=== PATIENT | male | born 1995 | race Caucasian/White ===

== ENCOUNTER 2022-07-14 08:52 | Emergency (ER) | payer MEDICAID, OTHER, SELFPAY ==
--- NOTE | ~2022-07-14 | XR_ITS ---
EXAMINATION: XR CHEST CLINICAL INFORMATION: COVID positive, fever COMPARISON: None TECHNIQUE: 2 views of the chest were obtained. FINDINGS: No significant abnormality is noted involving the heart, lungs, mediastinum, bony thorax or soft tissues. XR/XR chest 2V IMPRESSION: No acute pulmonary disease.
[2022-07-14 09:52] VITALS: BP 127/73; PULSE 111; RESP 24; TEMP 38.1; O2SAT 97; BMI 27.7
[2022-07-14] MEDS: Acetaminophen 325 MG TABLET 975 MG PO (09:59)
[2022-07-14 12:19] VITALS: BP 119/85; PULSE 105; RESP 20; TEMP 37.4; O2SAT 98
[2022-07-14 12:33] LABS: Strep A Nucleic Acid Positive (Negative)
[2022-07-14 12:34] LABS: COVID-19 Test Positive (Negative)
--- NOTE | 2022-07-14 12:38 | ED_ITS ---
HPI - URI/Sore Throat General Chief Complaint: Upper Respiratory Symptoms Stated Complaint: covid + diff breathing Time Seen by Provider: 07/14/22 12:18 Source: patient Mode of arrival: ambulatory Limitations: language barrier (Belarusian-speaking) History of Present Illness HPI Narrative: 26-year-old male c PMHx of kidney stones presenting to the ER with complaints of fevers, chills, fatigue, malaise, nasal congestion/rhinorrhea, sore throat, productive cough with yellow/green colored sputum/shortness of breath since Thursday worse today. Reports that he is vaccinated to COVID. He took the at home COVID test was positive today. He reports that he had 2 episodes of vomiting. Otherwise he has been eating and drinking normally after that. He denies any dizziness, neck pain/stiffness, trouble swallowing, trouble breathing, chest pain, dyspnea on exertion, orthopnea, palpitations, paresthesias, abdominal pain, diarrhea or constipation, black or bloody stools, lower extremity edema calf tenderness, recent travel or sick contacts that he is aware of or any other symptoms complaints or concerns at this time. MD elicited complaint: fever, cough, sore throat, rhinorrhea and nasal congestion Onset (ago): day(s) (3) Consistency: constant and progressively worsening Severity: moderate Description of mucous: clear, watery, yellow and green Able to tolerate fluids by mouth: Yes Exacerbating factors: swallowing Relieving factors: nothing Associated symptoms: fever, chills, myalgias, headache, rhinorrhea, nasal congestion, sore throat, cough, shortness of breath, nausea and vomiting Treatments prior to arrival: none Related Data Previous Rx's Medication Instructions Recorded acetaminophen 500 mg tablet 1,000 mg PO QID PRN fever or pain 07/14/22 (Tylenol Extra Strength) #14 tabs amoxicillin 875 mg-potassium 1 tab PO BID pharygitis 10 days 07/14/22 clavulanate 125 mg tablet #20 tabs ibuprofen 800 mg tablet 800 mg PO Q8H PRN pain #14 tabs 07/14/22 ondansetron 4 mg disintegrating 4 mg PO Q8H #14 tabs 07/14/22 tablet Allergies Allergy/AdvReac Type Severity Reaction Status Date / Time No Known Allergies Allergy Unverified 06/07/20 19:36 [No Known Allergies*] Review of Systems Review of Systems: Constitutional : No Weight loss, + Fever, + Chills, No Night Sweats, + Fatigue, + Malaise ENT/Mouth : + Sore throat, + nasal congestion/rhinorrhea, No Hearing loss, No Ear Pain, No Sinus Pain, No Hoarseness, No Swallowing Difficulty Eyes: No Eye Pain, No Swelling, No Redness, No Foreign Body, No Discharge, No Vision Changes Cardiovascular : No Chest Pain, + SOB, No Dyspnea on Exertion, No Orthopnea, No Edema, No Palpitations Respiratory : + Cough, + Sputum, No Wheezing, No Smoke Exposure, No Dyspnea Gastrointestinal : + Nausea, + Vomiting, No Diarrhea, No Constipation, No abdominal Pain, No Hematochezia, No Melena Genitourinary : no irregular bleeding, No Dysuria, No Urinary Frequency, No Hematuria, No Urinary Incontinence, No Urgency, No Flank Pain, No Urinary Flow Changes, No Hesitancy Musculoskeletal : No joint pain, + Myalgias, No Joint Swelling Skin : No Skin Lesions, No rash Neuro : No Weakness, No Numbness, No Paresthesias, No Loss of Consciousness, No Dizziness, No Headache Psych : No Anxiety/Panic, No Depression, No SI/HI/AH/VH, No Social Issues, Heme/Lymph: No Bruising, No Bleeding,No Lymphadenopathy Endocrine : No Polyuria, No Polydipsia, No Temperature Intolerance Yes all other systems are reviewed and are negative [facility] Past Medical History Attestation statement: The following information was validated with the patient. Source: old records reviewed, obtained from family and nursing notes reviewed Social History Social History Advance Directives: No Advance Directives Information Provided: No Physical Exam Vital Signs: Vital Signs: Last Vital Signs Temp 99.4 F 07/14/22 12:19 Pulse 105 H 07/14/22 12:19 Resp 20 07/14/22 12:19 BP 119/85 07/14/22 12:19 Pulse Ox 98 07/14/22 12:19 O2 Del Method 07/14/22 12:19 BMI result Body Mass Index 27.7 vital signs have been reviewed as normal and appeared to be correct. Blood pressure normal. Heart rate 111. Respiration rate 24. Temperature 100.5. Oxygen saturation normal. Appearance: Alert. Oriented X3. No acute distress. Head: Normal external exam. Normocephalic. Atraumatic. Eyes: PERRLA. EOMI. Conjunctiva and sclera normal. Eyelids normal. ENT: EAC normal. TM's Normal. Posterior pharynx mildly erythematous although no exudate is noted. Uvula midline. Moist mucous membranes. No lesions/ulcerations or masses noted on the tongue. Normal voice. No trismus noted. No drooling noted. No muffled voice noted. Neck: Normal inspection. Neck supple. FROM. No adenopathy. Thyroid Normal. No meningeal signs. CVS: Normal heart rate and rhythm. Heart sound normal. Pulses normal throughout. No murmurs/rales/gallops. Respiratory: No respiratory distress. Painless inspiration. Breath sounds normal. No wheezes/rales/rhonchi noted. Chest nontender. No accessory muscle usage noted or decreased air movement noted. Abdomen: Soft and nontender. Nondistended. No guarding. No rigidity. Bowel sounds normal in all 4 quadrants. No distention noted. No organomegaly noted. No visible injury noted. No rebound tenderness. Negative Rovsing sign. Negative obturator's sign. Negative psoas sign. Negative Green sign. Back: No CVA tenderness. Full range of motion noted. Mild tenderness palpation to lower lumbar aspect. No signs of trauma. Patient neuro intact bilaterally and distally on all 4 extremities. Patient's reflexes intact bi laterally and distally on all 4 extremities. No rashes/lesion/induration/fluctuance or signs of infection noted. Skin: Skin warm and dry. Normal skin color. Normal skin turgor. No rashes/lesions/lacerations noted. Extremities: No lower extremity edema. No calf tenderness is noted. Extremities exhibit normal range of motion and nontender. Neuro: Oriented X 3. No motor deficit. No sensory deficit. Reflexes normal. Normal steady gait. No focal neuro deficits noted. CN's II-XII intact bilaterally? Vascular: + radial pulses/+ 2 distal pedal pulses/+2 dorsalis pedis b/l. Normal cap refill. No cyanosis noted to upper extremity nails and lower extremity toes nails. Course Course Course Narrative: Patient positive for COVID. Patient positive for bacterial pharyngitis. Patient is able to tolerate p.o. fluids. Chest x-ray negative for any acute processes per No additional labs imaging indicated. Will DC home with symptomatic treatment antibiotics and instructions to self isolate per CDC guidelines and to return if any new or worsening symptoms. Patient understands agrees with this plan. MDM - URI/Sore Throat Medical Records Attestation: I reviewed the patient's medical records. Lab Data Attestation: I reviewed the patient's lab results. Labs: Lab Results 07/14/22 07/14/22 Range/Units 12:21 12:21 COVID-19 (LEE) Positive A (Negative) COVID-19 Clin Com See Note S. pyogenes GrpA DEVON Positive A (Negative) Imaging Data Chest x-ray: Attestation: I personally reviewed and interpreted this imaging study as follows: Radiologist's impression: FINDINGS: No significant abnormality is noted involving the heart, lungs, mediastinum, bony thorax or soft tissues. XR/XR chest 2V IMPRESSION: No acute pulmonary disease. Discharge Plan Discharge Clinical Impression: COVID-19, Acute bacterial pharyngitis Patient Disposition: Home, Self-Care Instructions: Pharyngitis (ED), COVID-19 (Coronavirus Disease 2019) (ED) Prescriptions: New ibuprofen 800 mg tablet 800 mg PO Q8H PRN (Reason: pain) Qty: 14 0RF acetaminophen [Tylenol Extra Strength] 500 mg tablet 1,000 mg PO QID PRN (Reason: fever or pain) Qty: 14 0RF amoxicillin-pot clavulanate 875-125 mg tablet 1 tab PO BID 10 Days Qty: 20 0RF ondansetron 4 mg tablet,disintegrating 4 mg PO Q8H Qty: 14 0RF Referrals: Physician,None [Primary Care Provider] - (your pcp) Stand Alone Forms: Work/School Release Interventions: ED Discharge Assessment Last Done: 07/14/22 13:12 Discharge Date/Time: 07/14/22 13:13 Print Language: Belarusian
[2022-07-14] MEDS: Ondansetron ODT 4 MG TAB.RAPDIS TRANSLINGU (12:42)
[2022-07-14] MEDS: Ibuprofen 800 MG TABLET PO (12:43)
== END 2022-07-14 13:13 | disposition home or self-care (01) ==
PROVIDERS: Emergency Provider Emergency Medicine
DX: U07.1 COVID-19 (principal); J02.0 Streptococcal pharyngitis
CPT/HCPCS: 71046; 87635; 87651; 99283; 99284

== ENCOUNTER 2022-11-12 09:23 | Emergency (ER) | payer OTHER, SELFPAY ==
--- NOTE | ~2022-11-12 | CT_ITS ---
EXAMINATION: CT ABDOMEN AND PELVIS WITHOUT CONTRAST CLINICAL INFORMATION: Left-sided abdominal pain and hematuria COMPARISON: CT abdomen pelvis 09/17/2018 TECHNIQUE: Multidetector volumetric imaging was performed from the superior aspect of the liver through the pubic symphysis. Sagittal and coronal reformatted images were obtained on the technologist's workstation. This CT examination was performed using dose optimization techniques as appropriate, variously including the following: *Automated exposure control *Adjustment of mA and/or kV according to patient size (this includes techniques or standardized protocols for targeted exams where dose is matched to indication/reason for exam; i.e. extremities or head) *Use of iterative reconstruction technique DLP: 600 mGy-cm FINDINGS: LUNG BASES: The visualized lung bases are unremarkable. LIVER, GALLBLADDER, AND BILIARY TREE: The liver is enlarged at 18.8 cm in greatest length and demonstrates decreased attenuation consistent with hepatic steatosis. No focal hepatic lesion or biliary ductal dilatation is present. The gallbladder is unremarkable with no evidence of radiopaque gallstones, gallbladder wall thickening, or obvious pericholecystic inflammatory changes. PANCREAS: Unremarkable. SPLEEN: Unremarkable. ADRENAL GLANDS: Unremarkable. KIDNEYS AND URETERS: There is a new stones seen in the left distal ureter measuring 5 mm which was not present at the time of the prior study. The stone is causing no significant obstruction, as hydronephrosis is not detected. Bilateral nonobstructing renal calculi are again noted with 7 stones in the right kidney the largest measuring under 3.5 mm and 5 stones in the left kidney with the largest measuring 3 mm. A benign 1.2 cm Bosniak class I simple left renal cyst is present which needs no additional imaging or follow-up. BLADDER: Unremarkable. GASTROINTESTINAL TRACT: The small and large bowel are unremarkable. The appendix is unremarkable. ABDOMINAL WALL: No significant hernia is appreciated. LYMPH NODES: No retroperitoneal lymphadenopathy VASCULAR: Unremarkable. PELVIC VISCERA: The prostate and seminal vesicles are unremarkable. OSSEOUS STRUCTURES: Unremarkable. CT/CT abdomen pelvis wo IV con IMPRESSION: 1. There is a new 5 mm stone in the left distal ureter causing no significant obstruction. 2. Bilateral nonobstructing renal calculi are present. 3. Enlarged fatty liver. Fleischner guidelines were followed.
[2022-11-12 09:33] VITALS: BP 136/82; PULSE 93; RESP 18; TEMP 35.8; O2SAT 97; BMI 28.0
--- NOTE | 2022-11-12 09:47 | PC.NURSE ---
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
--- NOTE | 2022-11-12 10:08 | ED_ITS ---
HPI - Male Genitourinary General Chief complaint: Urogenital-Male Stated complaint: renee/blood when urinating Time Seen by Provider: 11/12/22 09:49 Source: patient Mode of arrival: ambulatory Limitations: no limitations History of Present Illness HPI Narrative: 27-year-old male came in for evaluation of left-sided abdominal pain started 2 days ago. Started 2 days ago with sharp stabbing pain to the left side of the abdomen radiating toward to the left groin, pain is now associated with blood in the urine but no nausea vomiting. No fever or chills. Normal bowel movement. Related Data Previous Rx's Medication Instructions Recorded acetaminophen 500 mg tablet 1,000 mg PO QID PRN fever or pain 07/14/22 (Tylenol Extra Strength) #14 tabs amoxicillin 875 mg-potassium 1 tab PO BID pharygitis 10 days 07/14/22 clavulanate 125 mg tablet #20 tabs ibuprofen 800 mg tablet 800 mg PO Q8H PRN pain #14 tabs 07/14/22 ondansetron 4 mg disintegrating 4 mg PO Q8H #14 tabs 07/14/22 tablet oxycodone 5 mg tablet 5 mg PO BID PRN pain #10 tabs 11/12/22 Allergies Allergy/AdvReac Type Severity Reaction Status Date / Time No Known Allergies Allergy Verified 11/12/22 09:40 [No Known Allergies*] Review of Systems Review of Systems: All other systems are reviewed and are negative Constitutional: Reports as per HPI and Reports no additional constitutional complaints Eyes: Reports as per HPI and Reports no additional eye complaints Reports system reviewed and no additional complaints, except as documented Cardiovascular: Reports as per HPI and Reports no additional cardiovascular complaints Respiratory: Reports as per HPI and Reports no additional respiratory complaints Gastrointestinal: Reports as per HPI and Reports no additional gastrointestinal complaints Genitourinary: Reports no additional female genitourinary complaints Musculoskeletal: Reports no additional musculoskeletal complaints Skin/Breast: Reports system reviewed and no additional complaints, except as docu Psychiatric: Reports no additional psychiatric complaints Endocrine: Reports no additional endocrine complaints Hematologic/Lymphatic: Reports no additional hematologic/lymphatic complaints Allergic/Immunologic: Reports no additional allergic/immunologic complaints Reports system reviewed and no additional complaints, except as documented and Reports Abnormal speech present [facility] Social History Social History Alcohol intake: unknown Smoked in Last 30 Days: No Advance Directives: No Physical Exam Vital Signs: Vital Signs: Last Vital Signs Temp 96.5 F L 11/12/22 09:33 Pulse 81 11/12/22 13:53 Resp 18 11/12/22 13:53 BP 128/80 11/12/22 13:53 Pulse Ox 97 11/12/22 13:53 O2 Del Method 11/12/22 13:53 BMI result Body Mass Index 28.0 Vital signs have been reviewed as appeared to be correct. Blood pressure normal. Heart rate normal. Respiration rate normal. Temperature normal. Oxygen saturation normal. Appearance: Alert. Oriented X3. No acute distress. Head: Normal external exam. Normocephalic. Atraumatic. No Shepard signs noted. No raccoon eyes noted Eyes: PERRLA. EOMI. Conjunctiva and sclera normal. Eyelids normal. ENT: TM's Normal. Pharynx normal. Uvula midline. Moist mucous membranes. No trismus noted. No drooling noted. No muffled voice noted. Neck: Normal inspection. Neck supple. FROM. No adenopathy. Thyroid Normal. No m eningeal signs. No neck mass noted. CVS: Normal heart rate and rhythm. Heart sound normal. No murmurs noted. Pulses normal throughout. Respiratory: No respiratory distress. Painless inspiration. Breath sounds normal. No wheezes/rales/rhonchi noted. Chest nontender. No accessory muscle usage noted or decreased air movement noted. Abdomen: Soft, left lower quadrant tenderness, no rebound tenderness, no guarding.. Bowel sounds normal in all 4 quadrants. No distention noted. No organomegaly noted. No visible injury noted. : Uncircumcised, intact bilateral cremasteric reflex, no scrotal swelling or tenderness. Back: Left CVA tenderness. Full range of motion noted. Skin: Skin warm and dry. Normal skin color. Normal skin turgor. No rashes/lesions/lacerations noted. Extremities: No lower extremity edema. Extremities exhibit normal range of motion. Extremities nontender. Neuro: Oriented X 3. Cranial nerve exam: II-XII are grossly intact No motor deficit. No sensory deficit. Reflexes normal. Course Course Course Narrative: 27-year-old male came in for hematuria and left-sided abdominal pain, physical exam and CT of the abdomen pelvis is consistent with 5 mm stone in distal ureter. Encouraged the patient to drink plenty of fluid and will discharge with oxycodone and follow up with urologist. Medications Administered Discontinued Medications Generic Name Dose Route Start Last Admin Trade Name Freq PRN Reason Stop Dose Admin Sodium Chloride 1,000 mls @ 999 mls/hr 11/12/22 10:05 11/12/22 11:20 Ns IV 11/12/22 11:05 Infused .Q1H1M ONE Infusion Ketorolac Tromethamine 30 mg 11/12/22 10:05 11/12/22 10:17 Ketorolac Tromethamine 30 Mg/Ml Vial IVPUSH 11/12/22 10:06 30 mg ONCE ONE Administration Morphine Sulfate 2 mg 11/12/22 10:05 11/12/22 10:17 Morphine Sulfate 2 Mg/Ml Cartridge IVPUSH 11/12/22 10:06 2 mg ONCE ONE Administration Protocol Medical Decision Making Differential Diagnosis Differential Diagnoses: The differential diagnosis associated with the pre sentation includes (Renal colic, ureteric stone, kidney infection, UTI, anemia due to hematuria.) Lab Data MDM Lab Attestation statement: I reviewed the patient's lab results. 11/12/22 10:13 11/12/22 10:13 Labs: Lab Results 11/12/22 11/12/22 11/12/22 Range/Units 10:13 10:13 10:13 WBC 7.0 (4.8-10.8) X10*3/uL RBC 6.14 H (4.60-5.80) X10*6/uL Hgb 17.1 (14.0-18.0) g/dl Hct 51.0 (42.0-52.0) % MCV 83.1 (80.0-98.0) fL MCH 27.9 (27.0-33.0) pg MCHC 33.5 (31.0-36.0) g/dl RDW 13.0 (11.0-16.0) % Plt Count 255 (160-400) X10*3/uL MPV 10.5 (9.4-12.4) fL Immature Gran % (Auto) 0.3 (0.0-0.4) % Neut % (Auto) 46.4 (45-73) % Lymph % (Auto) 40.9 H (20-40) % [place] % (Auto) 6.2 (2-11) % Eos % (Auto) 5.6 H (0-4) % Baso % (Auto) 0.6 (0-2) % Lymph # (Auto) 2.9 (1.2-4.9) X10*3/uL [place] # (Auto) 0.4 (0.1-1.2) X10*3/uL Eos # (Auto) 0.4 (0.0-0.4) X10*3/uL Baso # (Auto) 0.0 (0.0-0.2) X10*3/uL Abs Immat Gran (auto) 0.02 (0.00-0.03) X10*3/uL Absolute Neuts (auto) 3.2 (2.0-8.3) x10*3/uL Absolute Nucleated RBC 0.000 (0.0-0.012) X10*3/uL Nucleated RBC % (auto) 0.0 (0.0-0.2) /100WBC Sodium 141 (135-145) mmol/L Potassium 4.3 (3.3-5.1) mmol/L Chloride 109 H (96-108) mmol/L Carbon Dioxide 26 (22-29) mmol/L Anion Gap 10 L (12-20) BUN 12 (9-16) mg/dL Creatinine 0.97 (0.5-1.4) mg/dL Estim Creat Clear Calc 119.6 Estimated GFR > 60 Random Glucose 90 (60-115) mg/dL Calcium 9.8 (8.4-10.2) mg/dL Total Bilirubin 0.6 (0.0-1.0) mg/dL Direct Bilirubin < 0.2 (0.0-0.5) mg/dL AST 21 (5-37) U/L ALT 34 (0-40) U/L Alkaline Phosphatase 59 (39-117) U/L Total Protein 7.2 (6.5-8.0) g/dL Albumin 4.3 (3.5-5.0) g/dL Lipase 18 (8-78) U/L Urine Color DK YELLOW Urine Appearance Hazy Urine pH 6.5 (5.0-9.0) Ur Specific [place] 1.020 (1.005-1.025) Urine Protein Trace (Neg-Trace) mg/dL Urine Glucose (UA) Negative (Negative) mg/dL Urine Ketones Negative (Negative) mg/dL Urine Blood Negative (Negative) Urine Nitrite See Note (Negative) Ur Leukocyte Esterase Negative (Negative) Urine RBC 0-2 (0-2) /HPF Urine WBC 0-5 (0-5) /HPF Ur Squamous Epith Cells 0-2 (0-2) /HPF Urine Bacteria None Seen (None Seen) Hyaline Casts 0-2 (0-2) /LPF Independent Interpretation I performed an independent interpretation of an: CT Scan (5 mm left ureteric stone) Radiology Impression Discussion of test interpretation with radiology: I have reviewed the radiologist's reading. (1. There is a new 5 mm stone in the left distal ureter causing no significant obstruction. 2. Bilateral nonobstructing renal calculi are present. 3. Enlarged fatty liver. ) Discharge Plan Discharge Clinical Impression: Renal colic Patient Disposition: Home, Self-Care Instructions: Renal Colic (ED) Prescriptions: New oxycodone 5 mg tablet 5 mg PO BID PRN (Reason: pain) Qty: 10 0RF Rx Instructions: Partial Fill upon patient request. No Action ibuprofen 800 mg tablet 800 mg PO Q8H PRN (Reason: pain) Qty: 14 0RF acetaminophen [Tylenol Extra Strength] 500 mg tablet 1,000 mg PO QID PRN (Reason: fever or pain) Qty: 14 0RF amoxicillin-pot clavulanate 875-125 mg tablet 1 tab PO BID 10 Days Qty: 20 0RF ondansetron 4 mg tablet,disintegrating 4 mg PO Q8H Qty: 14 0RF Referrals: Thomas Brantley MD [Physician] -
[2022-11-12] MEDS: Morphine Sulfate 2 MG/ML CARTRIDGE IVPUSH (10:17)
[2022-11-12] MEDS: 0.9 % Sodium Chloride 1,000 ML 999 ML IV (10:17)
[2022-11-12] MEDS: Ketorolac Tromethamine 30 MG/ML VIAL IVPUSH (10:17)
[2022-11-12 10:18] LABS: MANUAL DIFF FLAG NO
--- NOTE | 2022-11-12 10:20 | PC.NURSE ---
Portugese speaking gentleman with report of abdominal pain with blood with urination 8/. Neuros intact no respiratory distress noted. Patient ambulatory to bathroom with steady independent gait. IV access obtained labs collected and sent. Speeder Hand utilized tolerating IVF and pain meds will CTM
[2022-11-12 10:23] LABS: Appearance Urine Hazy; Color Urine DK YELLOW; Glucose Urine UA Negative (Negative); Leukocyte Esterase Urine Negative (Negative); PH 6.5 (5.0-9.0); UMIC TRIGGER UACC YES; Urine Blood Negative (Negative); Urine Ketones Negative (Negative); Urine Protein Trace mg/dL (Neg-Trace)
[2022-11-12 10:25] LABS: Basophils Percent Auto 0.6 % (0-2); Eosinophils Absolute Auto 0.4 X10*3/uL (0.0-0.4); Eosinophils Percent Auto 5.6 % (0-4); Hemoglobin 17.1 g/dl (14.0-18.0); Imm Gran Abs Auto 0.02 X10*3/uL (0.00-0.03); Imm Gran Pct Auto 0.3 % (0.0-0.4); Lymphocytes Absolute Auto 2.9 X10*3/uL (1.2-4.9); Lymphocytes Percent Auto 40.9 % (20-40); Mean Corpuscular HGB Conc 33.5 g/dl (31.0-36.0); Mean Corpuscular Hemoglobin 27.9 pg (27.0-33.0); Mean Corpuscular Volume 83.1 fL (80.0-98.0); Mean Platelet Volume 10.5 fL (9.4-12.4); Monocytes Absolute Auto 0.4 X10*3/uL (0.1-1.2); Monocytes Percent Auto 6.2 % (2-11); Neutrophils Absolute Auto 3.2 x10*3/uL (2.0-8.3); Neutrophils Percent Auto 46.4 % (45-73); Platelet Count 255 X10*3/uL (160-400); Red Blood Count 6.14 X10*6/uL (4.60-5.80)
[2022-11-12 10:44] LABS: Bacteria Urine None Seen (None Seen); Hyaline Casts Urine 0-2 /LPF (0-2); RBC Urine 0-2 /HPF (0-2); Squamous Epithelial Cell Urine 0-2 /HPF (0-2); WBC Urine 0-5 /HPF (0-5)
[2022-11-12 10:45] LABS: Alanine Aminotransferase 34 U/L (0-40); Albumin Level 4.3 g/dL (3.5-5.0); Alkaline Phosphatase 59 U/L (39-117); Anion Gap 10 (12-20); Aspartate Amino Transferase 21 U/L (5-37); Bilirubin Direct < 0.2 mg/dL (0.0-0.5); Bilirubin Total 0.6 mg/dL (0.0-1.0); Blood Urea Nitrogen 12 mg/dL (9-16); Calcium 9.8 mg/dL (8.4-10.2); Carbon Dioxide 26 mmol/L (22-29); Chloride 109 mmol/L (96-108); Creatinine Clr Calc Pharmacy 119.6; Estimated Glomerular Filt Rate > 60; Glucose Random 90 mg/dL (60-115); Lipase 18 U/L (8-78); Potassium 4.3 mmol/L (3.3-5.1); Sodium 141 mmol/L (135-145); Total Protein 7.2 g/dL (6.5-8.0)
--- NOTE | 2022-11-12 10:46 | PC.NURSE ---
Patient reports some improvement with pain continues to tolerate IVF will CTM
[2022-11-12 13:53] VITALS: BP 128/80; PULSE 81; RESP 18; O2SAT 97
== END 2022-11-12 14:36 | disposition home or self-care (01) ==
PROVIDERS: Emergency Provider Emergency Medicine
DX: R31.9 Hematuria, unspecified (principal); N23 Unspecified renal colic; Z79.899 Other long term (current) drug therapy
CPT/HCPCS: 36415; 74176; 80048; 80076; 81001; 83690; 85025; 96361; 96374; 96375; 99284; J1885; J2270

== ENCOUNTER 2022-11-23 07:59 | Inpatient (IN) | payer OTHER, SELFPAY ==
--- NOTE | ~2022-11-23 | US_ITS ---
EXAMINATION: US RETROPERITONEAL COMPLETE (RENAL) CLINICAL INFORMATION: Left ureteral stone versus bladder stone. COMPARISON: CT abdomen pelvis 11/23/2022 TECHNIQUE: Real-time imaging of the kidneys and bladder. FINDINGS: RIGHT KIDNEY: 11.2 x 5.1 x 4.7 cm (SAG x AP x TRV). The kidney is normal in size, contour, and echogenicity. Renal cortical thickness is normal. No calculi identified sonographically or focal parenchymal lesions. No hydronephrosis. LEFT KIDNEY: 12.4 x 6.1 x 4.6 cm (SAG x AP x TRV). The kidney is normal in size, contour, and echogenicity. Renal cortical thickness is normal. No focal parenchymal lesions or hydronephrosis. 2 mm nonobstructing lower pole renal stone. BLADDER: A 7 mm stone is noted in the region of the left ureterovesicular junction. Bilateral ureteral jets are demonstrated. Prevoid bladder volume is 206 mL. Postvoid bladder volume is 14 mL. Prostate is normal in volume measuring 5.5 mL. US/US retroperitoneal comp IMPRESSION: A 7 mm stone is noted in the region of the left ureterovesicular junction. Bilateral ureteral jets are demonstrated. No hydronephrosis. 2 mm nonobstructing left lower pole renal stone.. Multiple other previously seen stones are not identified sonographically.
--- NOTE | ~2022-11-23 | CT_ITS ---
EXAMINATION: CT ABDOMEN AND PELVIS WITHOUT CONTRAST CLINICAL INFORMATION: Left lower quadrant/flank pain COMPARISON: CT abdomen and pelvis without IV contrast 11/12/2022 TECHNIQUE: Multidetector volumetric imaging was performed from the superior aspect of the liver through the pubic symphysis. Sagittal and coronal reformatted images were obtained on the technologist's workstation. This CT examination was performed using dose optimization techniques as appropriate, variously including the following: *Automated exposure control *Adjustment of mA and/or kV according to patient size (this includes techniques or standardized protocols for targeted exams where dose is matched to indication/reason for exam; i.e. extremities or head) *Use of iterative reconstruction technique DLP: 551 mGy-cm FINDINGS: LUNG BASES: The visualized lung bases are unremarkable. LIVER, GALLBLADDER, AND BILIARY TREE: The liver is normal in size, shape, and attenuation. No focal hepatic lesion or biliary ductal dilatation is present. The gallbladder is unremarkable with no evidence of radiopaque gallstones, gallbladder wall thickening, or obvious pericholecystic inflammatory changes. PANCREAS: Unremarkable. SPLEEN: Unremarkable. ADRENAL GLANDS: Unremarkable. KIDNEYS AND URETERS: The kidneys are normal in size, shape, and attenuation. There are multiple 3 mm radiopaque calculi scattered in the upper mid and lower pole of both kidneys without caliectasis or hydronephrosis. BLADDER: There is a 5 mm radiopaque calculi. The left UVJ orifice. Previously it was in the left distal ureter and has migrated inferiorly. Mild dilated left distal ureter is noted. GASTROINTESTINAL TRACT: Colon and the small bowel loops are normal caliber. Appendix is normal caliber. No free air or free fluid seen. ABDOMINAL WALL: No significant hernia is appreciated. LYMPH NODES: No abnormal size pelvic or retroperitoneal lymph nodes seen. VASCULAR: Unremarkable. PELVIC VISCERA: Unremarkable. OSSEOUS STRUCTURES: No aggressive lytic or sclerotic process seen. CT/CT abdomen pelvis wo IV con IMPRESSION: 1. 5 mm radiopaque calculi at the left UVJ orifice. Previously it was in the left distal ureter and has migrated inferiorly. Mild dilated left ureter. 2. Bilateral nonobstructive radiopaque renal calculi. Fleischner guidelines were followed.
--- NOTE | ~2022-11-23 | FL_ITS ---
EXAMINATION: XR FLUOROSCOPY WITH IMAGES CLINICAL INFORMATION: Left ureteral stone. COMPARISON: None. TECHNIQUE: Fluoroscopy Supervised By: Dr. Barrett . Fluoroscopy Time: 24.6 seconds. DAP: 7.31 Gy-cm2. Images: 2. FINDINGS: There are 2 digital images obtained. One of the images reveals a cystoscope in the bladder with guidewire extending into the distal ureter and beyond. The distal end of the guidewire is not in the field of view. FL/FL guidance in OR IMPRESSION: Fluoroscopy was provided to referring physician for left retrograde pyelogram.
[2022-11-23 08:01] VITALS: PULSE 94; RESP 18; TEMP 36.6; O2SAT 99; BMI 26.7
[2022-11-23 08:34] LABS: Appearance Urine Clear; Glucose Urine UA Negative (Negative); Leukocyte Esterase Urine Small (1+) (Negative); Nitrite Urine Positive (Negative); PH 5.5 (5.0-9.0); Specific Gravity - Urine 1.025 (1.005-1.025); UMIC TRIGGER UACC YES; Urine Blood Large (3+) (Negative); Urine Ketones Negative (Negative); Urine Protein Trace mg/dL (Neg-Trace)
[2022-11-23 08:35] LABS: Color Urine Dark Yellow
[2022-11-23 08:39] LABS: Bacteria Urine None Seen (None Seen); Hyaline Casts Urine 0-2 /LPF (0-2); RBC Urine >20 /HPF (0-2); Squamous Epithelial Cell Urine 0-2 /HPF (0-2); UACC Culture Trigger YES; WBC Urine 0-5 /HPF (0-5)
[2022-11-23 09:19] LABS: MANUAL DIFF FLAG NO
[2022-11-23 09:20] LABS: Basophils Percent Auto 0.6 % (0-2); Eosinophils Absolute Auto 0.3 X10*3/uL (0.0-0.4); Eosinophils Percent Auto 5.4 % (0-4); Hematocrit 49.5 % (42.0-52.0); Hemoglobin 16.6 g/dl (14.0-18.0); Imm Gran Abs Auto 0.01 X10*3/uL (0.00-0.03); Imm Gran Pct Auto 0.2 % (0.0-0.4); Mean Corpuscular HGB Conc 33.5 g/dl (31.0-36.0); Mean Corpuscular Hemoglobin 27.7 pg (27.0-33.0); Mean Corpuscular Volume 82.6 fL (80.0-98.0); Mean Platelet Volume 10.6 fL (9.4-12.4); Monocytes Absolute Auto 0.4 X10*3/uL (0.1-1.2); Monocytes Percent Auto 7.4 % (2-11); Neutrophils Absolute Auto 2.5 x10*3/uL (2.0-8.3); Neutrophils Percent Auto 47.4 % (45-73); Platelet Count 242 X10*3/uL (160-400); Red Blood Count 5.99 X10*6/uL (4.60-5.80); Red Cell Distribution Width 12.8 % (11.0-16.0); White Blood Count 5.2 X10*3/uL (4.8-10.8)
[2022-11-23] MEDS: Ketorolac Tromethamine 15 MG/ML VIAL IVPUSH (09:20)
[2022-11-23] MEDS: ondansetron HCL 4 MG/2 ML VIAL IVPUSH ×2 (09:20→13:47)
[2022-11-23] MEDS: 0.9 % Sodium Chloride 1,000 ML 999 ML IVCONT ×2 (09:21→10:09)
[2022-11-23 09:26] LABS: INTERNATIONAL NORM RATIO 1.1 (0.9-1.1); Prothrombin Time 12.1 SEC (10.0-13.1)
--- NOTE | 2022-11-23 09:53 | ED_ITS ---
HPI - Male Genitourinary General Chief complaint: Urogenital-Male Stated complaint: ?uti Time Seen by Provider: 11/23/22 08:31 Source: patient Related Data Previous Rx's Medication Instructions Recorded acetaminophen 500 mg tablet 1,000 mg PO QID PRN fever or pain 07/14/22 (Tylenol Extra Strength) #14 tabs amoxicillin 875 mg-potassium 1 tab PO BID pharygitis 10 days 07/14/22 clavulanate 125 mg tablet #20 tabs ibuprofen 800 mg tablet 800 mg PO Q8H PRN pain #14 tabs 07/14/22 ondansetron 4 mg disintegrating 4 mg PO Q8H #14 tabs 07/14/22 tablet oxycodone 5 mg tablet 5 mg PO BID PRN pain #10 tabs 11/12/22 Allergies Allergy/AdvReac Type Severity Reaction Status Date / Time No Known Allergies Allergy Verified 11/12/22 09:40 [No Known Allergies*] PMFSH Social History Social History Alcohol intake: current Alcohol intake frequency: holidays/special occasions only Smoked in Last 30 Days: No Use of substances other than those prescribed or required for medical reasons: No Advance Directives: No Advance Directives Information Provided: No Physical Exam Vital Signs: Vital Signs: Last Vital Signs Temp 98 F 11/23/22 08:01 Pulse 94 11/23/22 08:01 Resp 18 11/23/22 08:01 Pulse Ox 99 11/23/22 08:01 O2 Del Method 11/23/22 08:01 BMI result Body Mass Index 26.7 Medications Administered Discontinued Medications Generic Name Dose Route Start Last Admin Trade Name Freq PRN Reason Stop Dose Admin Sodium Chloride 1,000 mls @ 999 mls/hr 11/23/22 08:45 11/23/22 09:21 Ns IVCONT 11/23/22 09:45 999 mls/hr .Q1H1M JAYJAY Administration Ketorolac Tromethamine 15 mg 11/23/22 08:46 11/23/22 09:20 Ketorolac Tromethamine 15 Mg/Ml Vial IVPUSH 11/23/22 08:47 15 mg ONCE ONE Administration Ondansetron HCl 4 mg 11/23/22 08:44 11/23/22 09:20 Ondansetron Hcl 4 Mg/2 Ml Vial IVPUSH 11/23/22 08:45 4 mg ONCE ONE Administration Medical Decision Making Lab Data 11/23/22 09:13 11/23/22 09:13 Labs: Lab Results 11/23/22 11/23/22 11/23/22 Range/Units 08:21 09:13 09:13 WBC 5.2 (4.8-10.8) X10*3/uL RBC 5.99 H (4.60-5.80) X10*6/uL Hgb 16.6 (14.0-18.0) g/dl Hct 49.5 (42.0-52.0) % MCV 82.6 (80.0-98.0) fL MCH 27.7 (27.0-33.0) pg MCHC 33.5 (31.0-36.0) g/dl RDW 12.8 (11.0-16.0) % Plt Count 242 (160-400) X10*3/uL MPV 10.6 (9.4-12.4) fL Immature Gran % (Auto) 0.2 (0.0-0.4) % Neut % (Auto) 47.4 (45-73) % Lymph % (Auto) 39.0 (20-40) % [place] % (Auto) 7.4 (2-11) % Eos % (Auto) 5.4 H (0-4) % Baso % (Auto) 0.6 (0-2) % Lymph # (Auto) 2.0 (1.2-4.9) X10*3/uL [place] # (Auto) 0.4 (0.1-1.2) X10*3/uL Eos # (Auto) 0.3 (0.0-0.4) X10*3/uL Baso # (Auto) 0.0 (0.0-0.2) X10*3/uL Abs Immat Gran (auto) 0.01 (0.00-0.03) X10*3/uL Absolute Neuts (auto) 2.5 (2.0-8.3) x10*3/uL Absolute Nucleated RBC 0.000 (0.0-0.012) X10*3/uL Nucleated RBC % (auto) 0.0 (0.0-0.2) /100WBC PT (10.0-13.1) SEC INR (0.9-1.1) Lactic Acid 1.0 (0.5-2.0) mmol/L Urine Color Dark Yellow Urine Appearance Clear Urine pH 5.5 (5.0-9.0) Ur Specific [place] 1.025 (1.005-1.025) Urine Protein Trace (Neg-Trace) mg/dL Urine Glucose (UA) Negative (Negative) mg/dL Urine Ketones Negative (Negative) mg/dL Urine Blood Large (3+) H (Negative) Urine Nitrite Positive H (Negative) Ur Leukocyte Esterase Small (1+) H (Negative) Urine RBC >20 H (0-2) /HPF Urine WBC 0-5 (0-5) /HPF Ur Squamous Epith Cells 0-2 (0-2) /HPF Urine Bacteria None Seen (None Seen) Hyaline Casts 0-2 (0-2) /LPF 11/23/22 Range/Units 09:13 WBC (4.8-10.8) X10*3/uL RBC (4.60-5.80) X10*6/uL Hgb (14.0-18.0) g/dl Hct (42.0-52.0) % MCV (80.0-98.0) fL MCH (27.0-33.0) pg MCHC (31.0-36.0) g/dl RDW (11.0-16.0) % Plt Count (160-400) X10*3/uL MPV (9.4-12.4) fL Immature Gran % (Auto) (0.0-0.4) % Neut % (Auto) (45-73) % Lymph % (Auto) (20-40) % [place] % (Auto) (2-11) % Eos % (Auto) (0-4) % Baso % (Auto) (0-2) % Lymph # (Auto) (1.2-4.9) X10*3/uL [place] # (Auto) (0.1-1.2) X10*3/uL Eos # (Auto) (0.0-0.4) X10*3/uL Baso # (Auto) (0.0-0.2) X10*3/uL Abs Immat Gran (auto) (0.00-0.03) X10*3/uL Absolute Neuts (auto) (2.0-8.3) x10*3/uL Absolute Nucleated RBC (0.0-0.012) X10*3/uL Nucleated RBC % (auto) (0.0-0.2) /100WBC PT 12.1 (10.0-13.1) SEC INR 1.1 (0.9-1.1) Lactic Acid (0.5-2.0) mmol/L Urine Color Urine Appearance Urine pH (5.0-9.0) Ur Specific [place] (1.005-1.025) Urine Protein (Neg-Trace) mg/dL Urine Glucose (UA) (Negative) mg/dL Urine Ketones (Negative) mg/dL Urine Blood (Negative) Urine Nitrite (Negative) Ur Leukocyte Esterase (Negative) Urine RBC (0-2) /HPF Urine WBC (0-5) /HPF Ur Squamous Epith Cells (0-2) /HPF Urine Bacteria (None Seen) Hyaline Casts (0-2) /LPF Discharge Plan Discharge Prescriptions: No Action oxycodone 5 mg tablet 5 mg PO BID PRN (Reason: pain) Qty: 10 0RF Rx Instructions: Partial Fill upon patient request. ibuprofen 800 mg tablet 800 mg PO Q8H PRN (Reason: pain) Qty: 14 0RF acetaminophen [Tylenol Extra Strength] 500 mg tablet 1,000 mg PO QID PRN (Reason: fever or pain) Qty: 14 0RF amoxicillin-pot clavulanate 875-125 mg tablet 1 tab PO BID 10 Days Qty: 20 0RF ondansetron 4 mg tablet,disintegrating 4 mg PO Q8H Qty: 14 0RF
[2022-11-23 09:56] LABS: Alanine Aminotransferase 27 U/L (0-40); Albumin Level 4.4 g/dL (3.5-5.0); Alkaline Phosphatase 52 U/L (39-117); Anion Gap 12 (12-20); Aspartate Amino Transferase 17 U/L (5-37); Bilirubin Total 0.7 mg/dL (0.0-1.0); Blood Urea Nitrogen 16 mg/dL (9-16); Calcium 9.3 mg/dL (8.4-10.2); Carbon Dioxide 24 mmol/L (22-29); Chloride 108 mmol/L (96-108); Creatinine Clr Calc Pharmacy 115.6; Estimated Glomerular Filt Rate > 60; Glucose Random 95 mg/dL (60-115); Potassium 4.3 mmol/L (3.3-5.1); Sodium 140 mmol/L (135-145); Total Protein 7.1 g/dL (6.5-8.0)
--- NOTE | 2022-11-23 10:00 | ED_ITS ---
HPI - Abdominal Pain General Chief Complaint: Urogenital-Male Stated Complaint: ?uti Time Seen by Provider: 11/23/22 08:31 Source: patient Mode of arrival: ambulatory Limitations: language barrier (Portuguese-Speaking ) History of Present Illness HPI narrative: 27yoM who is Portuguese-speaking with a PMHx kidney stones was presenting to the ER with complaints of persistent left flank abdominal pain that is radiating now to the left lower quadrant/suprapubic area for 3 weeks worse today. Reports associated dysuria with nausea. Patient was seen here on 11/12/2022 for same complaint was diagnosed with a kidney stone 5 mm in the distal ureter pain was controlled therefore he was sent home oxycodone and instructions return if any new or worsening symptoms. Therefore at this time patient returned due to persistent now worsening symptoms. Denies any fevers, headaches, neck pain/stiffness, sore throat, nasal conge stion, cough, hematuria, black or bloody stools, constipation, recent travel or sick contacts or any other symptoms complaints or concerns at this time. MD elicited complaint: abdominal pain and flank pain Pertinent past history: kidney stones Onset (ago): week(s) (Three weeks worse today) Pain Consistency: constant Location: LLQ and L flank Severity: moderate Quality: aching Radiation: suprapubic Exacerbating factors: nothing Relieving factors: nothing Associated symptoms: nausea Treatments prior to arrival: other (He has been taking Motrin, Tylenol and oxycodone and no symptomatic relief) Related Data Previous Rx's Medication Instructions Recorded acetaminophen 500 mg tablet 1,000 mg PO QID PRN fever or pain 07/14/22 (Tylenol Extra Strength) #14 tabs amoxicillin 875 mg-potassium 1 tab PO BID pharygitis 10 days 07/14/22 clavulanate 125 mg tablet #20 tabs ibuprofen 800 mg tablet 800 mg PO Q8H PRN pain #14 tabs 07/14/22 ondansetron 4 mg disintegrating 4 mg PO Q8H #14 tabs 07/14/22 tablet oxycodone 5 mg tablet 5 mg PO BID PRN pain #10 tabs 11/12/22 Allergies Allergy/AdvReac Type Severity Reaction Status Date / Time No Known Allergies Allergy Verified 11/12/22 09:40 [No Known Allergies*] Review of Systems Review of Systems Constitutional : No Fever, No Chills, No Night Sweats, No Fatigue, No Malaise Cardiovascular : No Chest Pain, No SOB Respiratory : No Cough, No Sputum, No Wheezing, No Dyspnea Gastrointestinal : + Nausea, No Vomiting, No Diarrhea, + abdominal Pain, No Hematochezia, No Melena Genitourinary : No irregular bleeding, + Dysuria, No Urinary Frequency, No Hematuria,No Urinary Incontinence, No Urgency, + Flank Pain Musculoskeletal : No joint pain, No Myalgias, No Joint Swelling Skin : No Skin Lesions, No rash Neuro : No Weakness, No Numbness, No Paresthesias, No Loss of Consciousness, No Dizziness, No Headache Heme/Lymph: No Lymphadenopathy Endocrine : No Temperature Intolerance Yes all other systems are reviewed and are negative FORMERLY [facility], [facility]–1983 Past Medical History Attestation statement: The following information was validated with the patient. Source: old records reviewed and nursing notes reviewed Social History Social History Alcohol intake: current Alcohol intake frequency: holidays/special occasions only Smoked in Last 30 Days: No Use of substances other than those prescribed or required for medical reasons: No Advance Directives: No Advance Directives Information Provided: No Physical Exam ED Vital Signs: Vital Signs - 24 hr 11/23/22 08:01 11/23/22 10:14 11/23/22 12:08 Temperature 98 F Pulse Rate 94 76 67 Respiratory Rate 18 14 20 Blood Pressure 129/76 122/68 Pulse Oximetry 99 95 97 Oxygen Delivery Method Room Air Room Air Room Air BMI result Body Mass Index 26.7 Vital signs have been reviewed and all within normal limits Appearance: Alert. Oriented X3. No acute distress. Head: Normal external exam. Normocephalic. Eyes: PERRLA. EOMI. Conjunctiva and sclera normal. Eyelids normal. ENT: Pharynx normal. Uvula midline. Moist mucous membranes. No trismus noted. No drooling noted. No muffled voice noted. Neck: Normal inspection. Neck supple. FROM. No adenopathy. No meningeal signs. CVS: Normal heart rate and rhythm. Heart sound normal. No murmurs noted. Pulses normal throughout. Respiratory: No respiratory distress. Painless inspiration. Breath sounds normal. No wheezes/rales/rhonchi noted. Chest nontender. No accessory muscle usage noted or decreased air movement noted. Abdomen: Soft and moderate tenderness palpation to the left flank/left lower quadrant/suprapubic area with guarding. Nondistended. No rigidity. Bowel sounds normal in all 4 quadrants. No distention noted. No organomegaly noted. No visible injury noted. No rebound tenderness. Negative Rovsing sign. Negative obturator's sign. Negative psoas sign. Negative Green sign. Back: + left sided CVA tenderness. No Right CVAT noted. Full range of motion noted. Skin: Skin warm and dry. Normal skin color. Normal skin turgor. No rashes/lesions/lacerations noted. Extremities: Extremities exhibit normal range of motion. Extremities nontender. Neuro: Oriented X 3. No motor deficit. No sensory deficit. Reflexes normal. Normal steady gait. CN's II-XII intact bilaterally? Course Course Course Narrative: 8:45am - 27yoM who is Portuguese-speaking with a PMHx kidney stones was presenting to the ER with complaints of persistent left flank abdominal pain that is radiating now to the left lower quadrant/suprapubic area for 3 weeks worse today. Reports associated dysuria with nausea. Patient was seen here on 11/12/2022 for same complaint was diagnosed with a kidney stone 5 mm in the distal ureter pain was controlled with oxycodone 5mg. 27-year-old male presenting with left flank/left lower quadrant/suprapubic abdominal pain concerning for UTI versus pyelonephritis versus kidney stone. Abdominal exam without peritoneal signs. No evidence of acute abdomen at this time. Well appearing. Low suspicion for acute hepatobiliary disease (includng acute cholecystitis), appendicitis, acute infectious processes (pneumonia, hepatitis), vascular catastrophe, bowel obstruction or viscus perforation. Presentation not consistent with other acute, emergent causes of abdominal pain at this time. Plan: Will obtain labs, UA, blood cultures, lactic acid. Provide a L of IV fluids, 4 mg of Zofran and 50 mg of IV Toradol and re-evaluate. Reevaluation(s) Reevaluation #1: Labs reviewed - All labs are within normal limits. Patient negative for COVID. - UA revealed large amount of blood, positive nitrates, leukocytes consistent with UTI. Imaging - CT scan abdomen pelvis without IV contrast revealed a 5 mm radiopaque calculi at the left UVJ orifice. Previously it was in the left distal ureter and has migrated inferiorly. Mild dilated left ureter. Bilateral nonobstructing radiopaque renal calculi. Diagnosis: Therefore patient most likely UTI versus pyelonephritis with 5 mm stone at UVJ Consult with Urology Dr. Lance - she reports that she does not believe this is pyelonephritis as the patient does not have a elevated white blood cell count. She believes that the left CVA tenderness is related to the 5 mm stone at the left UVJ. Although she recommended giving the patient 2 L of fluid, nausea medication, Toradol and Dilaudid along with Flomax and steroids to help the patient's pain and patient's pain is controlled she instructed me to discharge the patient with antibiotics a nd instructions to follow-up as an outpatient basis. Therefore will re- evaluate. Patient understands agrees with this plan. Time: 10:18 Reevaluation #2: Patient's pain still not controlled after 4mg of Zofran, 15mg of Toradol, 2 mg of Dilaudid, 0.8mg of flomax, 10mg of Decadron and 2 L of fluids and 750mg of Levaquin. Therefore I consulted with Urology Dr. Lance who will admit at this time. Patient understands agrees with this plan. Time: 12:27 Medical Decision Making Differential Diagnosis Differential Diagnoses: The differential diagnosis associated with the presentation includes (see course my MDM is included) Admission/Observation Consideration of admission/observation: Escalation of care including admission/observation considered (I considered admission although urology does not believe the patient needs admission at this time if pain gets controlled) Consult Healthcare Provider Management of the patient was discussed with: [employer] Lead (Dr. Lance urologist) Lab Data [facility] Lab Attestation statement: I reviewed the patient's lab results. 11/23/22 09:13 11/23/22 09:13 Labs: Lab Results 11/23/22 11/23/22 11/23/22 Range/Units 08:21 09:13 09:13 WBC 5.2 (4.8-10.8) X10*3/uL RBC 5.99 H (4.60-5.80) X10*6/uL Hgb 16.6 (14.0-18.0) g/dl Hct 49.5 (42.0-52.0) % MCV 82.6 (80.0-98.0) fL MCH 27.7 (27.0-33.0) pg MCHC 33.5 (31.0-36.0) g/dl RDW 12.8 (11.0-16.0) % Plt Count 242 (160-400) X10*3/uL MPV 10.6 (9.4-12.4) fL Immature Gran % (Auto) 0.2 (0.0-0.4) % Neut % (Auto) 47.4 (45-73) % Lymph % (Auto) 39.0 (20-40) % [place] % (Auto) 7.4 (2-11) % Eos % (Auto) 5.4 H (0-4) % Baso % (Auto) 0.6 (0-2) % Lymph # (Auto) 2.0 (1.2-4.9) X10*3/uL [place] # (Auto) 0.4 (0.1-1.2) X10*3/uL Eos # (Auto) 0.3 (0.0-0.4) X10*3/uL Baso # (Auto) 0.0 (0.0-0.2) X10*3/uL Abs Immat Gran (auto) 0.01 (0.00-0.03) X10*3/uL Absolute Neuts (auto) 2.5 (2.0-8.3) x10*3/uL Absolute Nucleated RBC 0.000 (0.0-0.012) X10*3/uL Nucleated RBC % (auto) 0.0 (0.0-0.2) /100WBC PT (10.0-13.1) SEC INR (0.9-1.1) Sodium (135-145) mmol/L Potassium (3.3-5.1) mmol/L Chloride (96-108) mmol/L Carbon Dioxide (22-29) mmol/L Anion Gap (12-20) BUN (9-16) mg/dL Creatinine (0.5-1.4) mg/dL Estim Creat Clear Calc Estimated GFR Random Glucose (60-115) mg/dL Lactic Acid 1.0 (0.5-2.0) mmol/L Calcium (8.4-10.2) mg/dL Magnesium (1.6-2.6) mg/dL Total Bilirubin (0.0-1.0) mg/dL AST (5-37) U/L ALT (0-40) U/L Alkaline Phosphatase (39-117) U/L Total Protein (6.5-8.0) g/dL Albumin (3.5-5.0) g/dL Urine Color Dark Yellow Urine Appearance Clear Urine pH 5.5 (5.0-9.0) Ur Specific [place] 1.025 (1.005-1.025) Urine Protein Trace (Neg-Trace) mg/dL Urine Glucose (UA) Negative (Negative) mg/dL Urine Ketones Negative (Negative) mg/dL Urine Blood Large (3+) H (Negative) Urine Nitrite Positive H (Negative) Ur Leukocyte Esterase Small (1+) H (Negative) Urine RBC >20 H (0-2) /HPF Urine WBC 0-5 (0-5) /HPF Ur Squamous Epith Cells 0-2 (0-2) /HPF Urine Bacteria None Seen (None Seen) Hyaline Casts 0-2 (0-2) /LPF COVID-19 (LEE) (Negative) COVID-19 Clin Com 11/23/22 11/23/22 11/23/22 Range/Units 09:13 09:13 10:05 WBC (4.8-10.8) X10*3/uL RBC (4.60-5.80) X10*6/uL Hgb (14.0-18.0) g/dl Hct (42.0-52.0) % MCV (80.0-98.0) fL MCH (27.0-33.0) pg MCHC (31.0-36.0) g/dl RDW (11.0-16.0) % Plt Count (160-400) X10*3/uL MPV (9.4-12.4) fL Immature Gran % (Auto) (0.0-0.4) % Neut % (Auto) (45-73) % Lymph % (Auto) (20-40) % [place] % (Auto) (2-11) % Eos % (Auto) (0-4) % Baso % (Auto) (0-2) % Lymph # (Auto) (1.2-4.9) X10*3/uL [place] # (Auto) (0.1-1.2) X10*3/uL Eos # (Auto) (0.0-0.4) X10*3/uL Baso # (Auto) (0.0-0.2) X10*3/uL Abs Immat Gran (auto) (0.00-0.03) X10*3/uL Absolute Neuts (auto) (2.0-8.3) x10*3/uL Absolute Nucleated RBC (0.0-0.012) X10*3/uL Nucleated RBC % (auto) (0.0-0.2) /100WBC PT 12.1 (10.0-13.1) SEC INR 1.1 (0.9-1.1) Sodium 140 (135-145) mmol/L Potassium 4.3 (3.3-5.1) mmol/L Chloride 108 (96-108) mmol/L Carbon Dioxide 24 (22-29) mmol/L Anion Gap 12 (12-20) BUN 16 (9-16) mg/dL Creatinine 0.92 (0.5-1.4) mg/dL Estim Creat Clear Calc 115.6 Estimated GFR > 60 Random Glucose 95 (60-115) mg/dL Lactic Acid (0.5-2.0) mmol/L Calcium 9.3 (8.4-10.2) mg/dL Magnesium 2.0 (1.6-2.6) mg/dL Total Bilirubin 0.7 (0.0-1.0) mg/dL AST 17 (5-37) U/L ALT 27 (0-40) U/L Alkaline Phosphatase 52 (39-117) U/L Total Protein 7.1 (6.5-8.0) g/dL Albumin 4.4 (3.5-5.0) g/dL Urine Color Urine Appearance Urine pH (5.0-9.0) Ur Specific [place] (1.005-1.025) Urine Protein (Neg-Trace) mg/dL Urine Glucose (UA) (Negative) mg/dL Urine Ketones (Negative) mg/dL Urine Blood (Negative) Urine Nitrite (Negative) Ur Leukocyte Esterase (Negative) Urine RBC (0-2) /HPF Urine WBC (0-5) /HPF Ur Squamous Epith Cells (0-2) /HPF Urine Bacteria (None Seen) Hyaline Casts (0-2) /LPF COVID-19 (LEE) Negative (Negative) COVID-19 Clin Com See Note Independent Interpretation I performed an independent interpretation of an: CT Scan (I reviewed the CT scan results without contrast and agreeable with radiologist reading patient understand results) Radiology Impression Discussion of test interpretation with radiology: I have reviewed the radiologi st's reading. Radiologist Impression: FINDINGS: LUNG BASES: The visualized lung bases are unremarkable.? LIVER, GALLBLADDER, AND BILIARY TREE: The liver is normal in size, shape, and attenuation. No focal hepatic lesion or biliary ductal dilatation is present. The gallbladder is unremarkable with no evidence of radiopaque gallstones, gallbladder wall thickening, or obvious pericholecystic inflammatory changes.? PANCREAS: Unremarkable.? SPLEEN: Unremarkable.? ADRENAL GLANDS: Unremarkable.? KIDNEYS AND URETERS: The kidneys are normal in size, shape, and attenuation. There are multiple 3 mm radiopaque calculi scattered in the upper mid and lower pole of both kidneys without caliectasis or hydronephrosis.? BLADDER: There is a 5 mm radiopaque calculi. The left UVJ orifice. Previously it was in the left distal ureter and has migrated inferiorly. Mild dilated left distal ureter is noted. GASTROINTESTINAL TRACT: Colon and the small bowel loops are normal caliber. Appendix is normal caliber. No free air or free fluid seen.? ABDOMINAL WALL: No significant hernia is appreciated.? LYMPH NODES: No abnormal size pelvic or retroperitoneal lymph nodes seen. VASCULAR: Unremarkable. PELVIC VISCERA: Unremarkable.? OSSEOUS STRUCTURES: No aggressive lytic or sclerotic process seen.? CT/CT abdomen pelvis wo IV con IMPRESSION: 1.? 5 mm radiopaque calculi at the left UVJ orifice. Previously it was in the left distal ureter and has migrated inferiorly. Mild dilated left ureter. ? 2.? Bilateral nonobstructive radiopaque renal calculi. ? Fleischner guidelines were followed. External Record Review I reviewed the patient's prior ED visits imaging and lab Prescription Management I considered prescription management with: Pain Medication and Antibiotic Patient was given Toradol, Zofran, Dilaudid, Flomax, Decadron and Levaquin for UTI versus pyelo with kidney stone Chronic Conditions Patient?s care impacted by: Other (Kidney stone) Medications Administered Discontinued Medications Generic Name Dose Route Start Last Admin Trade Name Rodríguezq PRN Reason Stop Dose Admin Dexamethasone Sodium Phosphate 10 mg 11/23/22 09:40 11/23/22 10:08 Dexamethasone Sod Phosphate 10 Mg/Ml Vial IVPUSH 11/23/22 09:41 10 mg ONCE ONE Administration Hydromorphone HCl 1 mg 11/23/22 09:51 11/23/22 10:08 Hydromorphone Hcl 1 Mg/Ml Syringe IVPUSH 11/23/22 09:52 1 mg ONCE ONE Administration Protocol Hydromorphone HCl 1 mg 11/23/22 10:03 11/23/22 12:07 Hydromorphone Hcl 1 Mg/Ml Syringe IVPUSH 11/23/22 10:04 1 mg ONCE ONE Administration Protocol Sodium Chloride 1,000 mls @ 999 mls/hr 11/23/22 08:45 11/23/22 10:16 Ns IVCONT 11/23/22 09:45 Infused .Q1H1M JAYJAY Infusion Levofloxacin 750 mg in 150 mls @ 100 mls/hr 11/23/22 09:43 11/23/22 12:08 Levaquin IV 11/23/22 11:12 Infused ONCE ONE Infusion Sodium Chloride 1,000 mls @ 999 mls/hr 11/23/22 10:00 11/23/22 11:27 Ns IVCONT 11/23/22 11:00 Infused .Q1H1M JAYJAY Infusion Ketorolac Tromethamine 15 mg 11/23/22 08:46 11/23/22 09:20 Ketorolac Tromethamine 15 Mg/Ml Vial IVPUSH 11/23/22 08:47 15 mg ONCE ONE Administration Ondansetron HCl 4 mg 11/23/22 08:44 11/23/22 09:20 Ondansetron Hcl 4 Mg/2 Ml Vial IVPUSH 11/23/22 08:45 4 mg ONCE ONE Administration Tamsulosin HCl 0.8 mg 11/23/22 09:40 11/23/22 10:08 Tamsulosin Hcl 0.4 Mg Capsule PO 11/23/22 09:41 0.8 mg ONCE ONE Administration Critical Care Time Critical Care Time Critical Care Time: Yes Total Critical Care Time: 60 Attestation: I personally attest to this time spent taking care of the patient Discharge Plan Discharge Clinical Impression: Left nephrolithiasis, UTI (urinary tract infection), Acute pyelonephritis Patient Disposition: Admitted As Inpatient Prescriptions: No Action oxycodone 5 mg tablet 5 mg PO BID PRN (Reason: pain) Qty: 10 0RF Rx Instructions: Partial Fill upon patient request. ibuprofen 800 mg tablet 800 mg PO Q8H PRN (Reason: pain) Qty: 14 0RF acetaminophen [Tylenol Extra Strength] 500 mg tablet 1,000 mg PO QID PRN (Reason: fever or pain) Qty: 14 0RF amoxicillin-pot clavulanate 875-125 mg tablet 1 tab PO BID 10 Days Qty: 20 0RF ondansetron 4 mg tablet,disintegrating 4 mg PO Q8H Qty: 14 0RF
[2022-11-23] MEDS: Tamsulosin HCL 0.4 MG CAPSULE 0.8 MG PO (10:08)
[2022-11-23] MEDS: dexAMETHasone sod phosphate 10 MG/ML VIAL IVPUSH (10:08)
[2022-11-23] MEDS: HYDROmorphone HCl 1 MG/ML SYRINGE IVPUSH ×2 (10:08→12:07)
[2022-11-23 10:14] VITALS: BP 129/76; PULSE 76; RESP 14; O2SAT 95
[2022-11-23 10:25] LABS: COVID-19 Test Negative (Negative); IDNOW Serial# 16C4AD1C
[2022-11-23] MEDS: levoFLOXacin/D5W 750 MG/150 ML PIGGYBACK 100 MG IV (10:29)
[2022-11-23 12:08] VITALS: BP 122/68; PULSE 67; RESP 20; O2SAT 97
--- NOTE | 2022-11-23 12:27 | PC.NURSE ---
all urine to be collected in a urinal for nursing to strain
--- NOTE | 2022-11-23 13:32 | PM.HPGS ---
History of Present Illness History of Present Illness Date of Service: 11/25/22 Chief complaint: Kidney Stone UTI Hydronephrosis Narrative: Vasquez Bishop is a 27 year old male is [place]-speaking with a PMHx kidney stones was presenting to the ER with complaints of persistent left flank abdominal pain that is radiating now to the left lower quadrant/suprapubic area for 3 weeks worse today.? Reports associated dysuria with nausea.? Patient was seen here on 11/12/2022 for same complaint was diagnosed with a kidney stone 5 mm in the distal ureter pain was controlled therefore he was sent home oxycodone and instructions return if any new or worsening symptoms.? Therefore at this time patient returned due to persistent now worsening symptoms. Denies any fevers, headaches, neck pain/stiffness, sore throat, nasal congestion, cough, hematuria, black or bloody stools, constipation, recent travel or sick contacts or any other symptoms complaints or concerns at this time. UA nitrite positive. CT imagings note 5 mm stone in the left UVJ vs bladder, mild left ureteral dilatation. Will admit for pain management, IVF hydation and IV Abx's, patient received flomax in ED. Review of Systems Review of Systems: 10 point ROS negative other than stated in HPI Yes all other systems are reviewed and are negative PMFSH Social History Social History Household Members: Family Housing: House Do you presently have visiting nurse or other home services: No Alcohol intake: current Alcohol intake frequency: holidays/special occasions only Patient Tobacco Use Status: Never used Tobacco Smoked in Last 30 Days: No Use of substances other than those prescribed or required for medical reasons: No Currently Displaying Signs/Symptoms of Drug Intoxication Withdrawal: No Any prior treatment program specific to substance use: No Have you been hit, kicked, punched, or otherwise hurt by someone within the past year? If so, by whom?: No Do you feel safe in your current relationship?: Yes Is there a partner from a previous relationship who is making you feel unsafe now?: No Are you made to feel afraid or neglected: No Caodaism Healthcare Practices: n/a Advance Directives: No Advance Directives Information Provided: No Do you have thoughts of harming others: None Do you have a plan to hurt others: No Plan Recently lost weight without trying: No How much weight loss: Not applicable Eating poorly because of decreased appetite: No Nutrition screen score: 0 Nutrition Risks: No Nutritional Risk Poor oral hygiene: No service: No Current occupational status: employed Meds Allergies Allergy/AdvReac Type Severity Reaction Status Date / Time No Known Allergies Allergy Verified 11/12/22 09:40 [No Known Allergies*] Active Medications: Current Medications Acetaminophen (Acetaminophen 325 Mg Tablet) 650 mg PO Q6H PRN PRN Reason: Pain, Mild (Pain Scale 1-3) Docusate Sodium (Docusate Sodium 100 Mg Capsule) 100 mg PO BID JAYJAY Hydromorphone HCl (Hydromorphone Hcl 1 Mg/Ml Syringe) 0.5 mg IVPUSH Q4H PRN; Protocol PRN Reason: Pain, Severe (Pain Scale 7-10) Ondansetron HCl (Ondansetron Hcl 4 Mg/2 Ml Vial) 4 mg IVPUSH Q8H PRN PRN Reason: Nausea and Vomiting Oxycodone HCl (Oxycodone Hcl Immed Release 5 Mg Tablet) 5 mg PO Q6H PRN PRN Reason: Pain, Moderate (Pain Scale 4-6 Pharmacy Consult (Consult Rx Perform Med Rec) 1 each MISCELLANE ONCE PRN PRN Reason: Consult order Sodium Chloride (0.9 % Sodium Chloride Flush 3 Ml Syringe) 3 ml IVFLUSH QSHIFT [facility] Home Medications Medication Instructions Recorded Confirmed Last Taken Type multivitamin 1 tab PO DAILY 11/23/22 11/23/22 Unknown History phenazopyridine 95 mg tablet (Azo 190 mg PO TID PRN Pain 11/23/22 11/23/22 11/23/22 History Urinary Pain Relief) Physical Exam Vital Signs: Vital Signs: Last Vital Signs Temp 98 F 11/23/22 08:01 Pulse 67 11/23/22 12:08 Resp 20 11/23/22 12:08 BP 122/68 11/23/22 12:08 Pulse Ox 97 11/23/22 12:08 O2 Del Method 11/23/22 12:08 BMI result Body Mass Index 26.7 Const: General: healthy appearing, no acute distress and well developed Orientation/consciousness: patient oriented x3 HEENT: Head: Yes normocephalic and Yes atraumatic Eyes: Conjunctivae: conjunctivae normal Neck: Neck: Yes normal visual inspection Chest: Chest palpation & inspection: normal inspection of the chest Resp: Effort & Inspection: normal respiratory effort Cardio: Rate: regular rate GI: Inspection: Yes normal to inspection Palpation (GI): Soft to palpation and Tenderness to palpation present (GI) in the LLQ : General: Yes CVA tenderness (left) Back/Spine/Pelvis: Back: CVA tenderness (left) Skin: General skin exam: no rashes or lesions noted Neuro: General: patient oriented x3 Extrem: General: No pedal edema Psych: Appearance: grossly normal Affect: normal affect Results Results Labs: Short CBC 11/23/22 Range/Units 09:13 WBC 5.2 (4.8-10.8) X10*3/uL Hgb 16.6 (14.0-18.0) g/dl Hct 49.5 (42.0-52.0) % Plt Count 242 (160-400) X10*3/uL BMP 11/23/22 09:13 Sodium 140 Potassium 4.3 Chloride 108 Carbon Dioxide 24 BUN 16 Creatinine 0.92 Calcium 9.3 Liver Function 11/23/22 Range/Units 09:13 Total Bilirubin 0.7 (0.0-1.0) mg/dL AST 17 (5-37) U/L ALT 27 (0-40) U/L Alkaline Phosphatase 52 (39-117) U/L Albumin 4.4 (3.5-5.0) g/dL Urine 11/23/22 Range/Units 08:21 Urine Color Dark Yellow Urine Appearance Clear Urine pH 5.5 (5.0-9.0) Ur Specific [place] 1.025 (1.005-1.025) Urine Protein Trace (Neg-Trace) mg/dL Urine Glucose (UA) Negative (Negative) mg/dL Abdomen CT scan report/results: report reviewed and image reviewed CT scan - pelvis: report reviewed and image reviewed Additional studies: Date of Service: 11/23/22 Procedure(s): CT abdomen pelvis wo IV con Accession Number(s): [id number] cc: Daiana Owens~ EXAMINATION: CT ABDOMEN AND PELVIS WITHOUT CONTRAST? CLINICAL INFORMATION: Left lower quadrant/flank pain? COMPARISON: CT abdomen and pelvis without IV contrast 11/12/2022? TECHNIQUE: Multidetector volumetric imaging was performed from the superior aspect of the liver through the pubic symphysis. Sagittal and coronal reformatted images were obtained on the technologist's workstation.? This CT examination was performed using dose optimization techniques as appropriate, variously including the following: *Automated exposure control *Adjustment of mA and/or kV according to patient size (this includes techniques or standardized protocols for targeted exams where dose is matched to indication/reason for exam; i.e. extremities or head) *Use of iterative reconstruction technique DLP: 551 mGy-cm FINDINGS: LUNG BASES: The visualized lung bases are unremarkable.? LIVER, GALLBLADDER, AND BILIARY TREE: The liver is normal in size, shape, and attenuation. No focal hepatic lesion or biliary ductal dilatation is present. The gallbladder is unremarkable with no evidence of radiopaque gallstones, gallbladder wall thickening, or obvious pericholecystic inflammatory changes.? PANCREAS: Unremarkable.? SPLEEN: Unremarkable.? ADRENAL GLANDS: Unremarkable.? KIDNEYS AND URETERS: The kidneys are normal in size, shape, and attenuation. There are multiple 3 mm radiopaque calculi scattered in the upper mid and lower pole of both kidneys without caliectasis or hydronephrosis.? BLADDER: There is a 5 mm radiopaque calculi. The left UVJ orifice. Previously it was in the left distal ureter and has migrated inferiorly. Mild dilated left distal ureter is noted. GASTROINTESTINAL TRACT: Colon and the small bowel loops are normal caliber. Appendix is normal caliber. No free air or free fluid seen.? ABDOMINAL WALL: No significant hernia is appreciated.? LYMPH NODES: No abnormal size pelvic or retroperitoneal lymph nodes seen. VASCULAR: Unremarkable. PELVIC VISCERA: Unremarkable.? OSSEOUS STRUCTURES: No aggressive lytic or sclerotic process seen.? IMPRESSION: 1.? 5 mm radiopaque calculi at the left UVJ orifice. Previously it was in the left distal ureter and has migrated inferiorly. Mild dilated left ureter. ? 2.? Bilateral nonobstructive radiopaque renal calculi. Assessment and Plan (1) Left nephrolithiasis: Status: Acute (2) UTI (urinary tract infection): Status: Acute (3) Acute pyelonephritis: Status: Acute (4) Kidney stones: Status: Acute Plan IVF hydration IV pain management IV Levaquin strain all urine Time Spent With Patient Time: Total time managing care of this patient today ____ minutes. Quality Stroke Does the patient have a stroke diagnosis?: No VTE Prior VTE?: No VTE Risk Level:: Medical - low VTE Device Contraindication: Treatment Not Indicated VTE Drug Contraindication: Treatment Not Indicated Procedures Date of Service Date of Service: 11/23/22
[2022-11-23 13:47] VITALS: BP 145/91; PULSE 87; RESP 22; O2SAT 97
[2022-11-23] MEDS: HYDROmorphone HCl 0.5 MG/0.5 ML SYRINGE IVPUSH ×3 (13:47→22:06)
--- NOTE | 2022-11-23 14:03 | PHA.MEDREC ---
Pharmacy Consult ? Medication Reconciliation Pharmacy has completed the medication reconciliation. med rec completed. spoke with patient through an staff interpreter.
[2022-11-23 14:34] LABS: CT PCR NOT DETECTED (Not Detect.); NG PCR NOT DETECTED (Not Detect.)
[2022-11-23 17:10] VITALS: BP 140/76; PULSE 99; RESP 18; O2SAT 99
[2022-11-23] MEDS: 0.9 % Sodium Chloride Flush 3 ML SYRINGE IVFLUSH ×2 (17:10→19:12)
[2022-11-23 18:21] VITALS: BP 127/71; PULSE 96; RESP 18; TEMP 36.3; O2SAT 94
[2022-11-23] MEDS: Lactated Ringers 1,000 ML 125 ML IVCONT (19:12)
[2022-11-23] MEDS: Docusate Sodium 100 MG CAPSULE PO (20:37)
[2022-11-23] MEDS: Tamsulosin HCL 0.4 MG CAPSULE PO (20:37)
[2022-11-24] MEDS: HYDROmorphone HCl 0.5 MG/0.5 ML SYRINGE IVPUSH ×4 (02:49→20:15)
[2022-11-24] MEDS: Lactated Ringers 1,000 ML 125 ML IVCONT ×2 (02:51→10:40)
[2022-11-24 03:39] VITALS: BP 137/65; PULSE 78; RESP 18; TEMP 36.6; O2SAT 97
[2022-11-24 06:05] LABS: MANUAL DIFF FLAG NO
[2022-11-24 06:12] LABS: Basophils Percent Auto 0.1 % (0-2); Eosinophils Percent Auto 0.1 % (0-4); Hematocrit 43.8 % (42.0-52.0); Hemoglobin 14.8 g/dl (14.0-18.0); Imm Gran Abs Auto 0.04 X10*3/uL (0.00-0.03); Imm Gran Pct Auto 0.4 % (0.0-0.4); Lymphocytes Absolute Auto 1.7 X10*3/uL (1.2-4.9); Lymphocytes Percent Auto 16.1 % (20-40); Mean Corpuscular HGB Conc 33.8 g/dl (31.0-36.0); Mean Platelet Volume 11.2 fL (9.4-12.4); Monocytes Absolute Auto 0.5 X10*3/uL (0.1-1.2); Neutrophils Absolute Auto 8.4 x10*3/uL (2.0-8.3); Neutrophils Percent Auto 78.3 % (45-73); Platelet Count 262 X10*3/uL (160-400); Red Blood Count 5.28 X10*6/uL (4.60-5.80); Red Cell Distribution Width 12.6 % (11.0-16.0); White Blood Count 10.8 X10*3/uL (4.8-10.8)
[2022-11-24 06:27] LABS: Anion Gap 14 (12-20); Blood Urea Nitrogen 13 mg/dL (9-16); Calcium 9.6 mg/dL (8.4-10.2); Carbon Dioxide 24 mmol/L (22-29); Chloride 106 mmol/L (96-108); Creatinine Clr Calc Pharmacy 118.2; Estimated Glomerular Filt Rate > 60; Glucose Random 123 mg/dL (60-115); Potassium 4.1 mmol/L (3.3-5.1); Sodium 140 mmol/L (135-145)
[2022-11-24 07:55] VITALS: BP 114/63; PULSE 93; RESP 18; TEMP 36.8; O2SAT 94
[2022-11-24] MEDS: Acetaminophen 325 MG TABLET 650 MG PO (09:18)
[2022-11-24] MEDS: levoFLOXacin/D5W 500 MG/100 ML PIGGYBACK 100 MG IV (09:20)
[2022-11-24] MEDS: oxyCODONE HCl Immed Release 5 MG TABLET PO (13:00)
--- NOTE | 2022-11-24 13:57 | MHC.CM.PN ---
EMR REVIEWED, PT ADMITTED KIDNEY STONES/UTI HYDRONEPHROSIS, CM MET W/PT WHO IS [place] HOWEVER FLUENT IN [place] AND REQUESTING INTEGRATION ENGINEER, CM MET W/PT WHO REPORTS HE LIVES W/HIS SISTER, IS INDEP W/ALL CARE, DNIES USE OF DME/SERVICES AND IS REQUESTING A RETURN TO WORK LETTER ON D/C. PT REPORTS HE STILL DOES NOT HAVE A PCP AND WAS INSTRUCTED TO GO TO CONTACT [facility] D/T HIS INSURANCE, PT VERIFIES HCP IS HIS SISTER GIO MAYBERRY, CONTACT NUMBER ON FILE. D/C PLAN: HOME NO SERVICES W/SISTER FOR TRANSPORT
[2022-11-24 16:00] VITALS: BP 136/74; PULSE 84; RESP 18; TEMP 36.8; O2SAT 97
--- NOTE | 2022-11-24 17:53 | PC.NURSE ---
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 pt stated tylenol and oxy has little to no effect. Md was updated this shift and assessed pt at bedside. pt having US done this evening, pt was educated to not void prior. no stones were passed this shift. Pt did c/o flank pain and severe burning while voiding and continued afterwards. IV fluids maintained.
[2022-11-24 19:32] VITALS: BP 143/86; PULSE 88; RESP 18; TEMP 36.3; O2SAT 99
[2022-11-24] MEDS: Docusate Sodium 100 MG CAPSULE PO (20:08)
[2022-11-24] MEDS: Tamsulosin HCL 0.4 MG CAPSULE PO (20:08)
[2022-11-25] VITALS (11 sets, daily range): BP systolic 112–136; BP diastolic 68–84; PULSE 62–85; RESP 12–20; TEMP 36.4–36.8; O2SAT 95–98
[2022-11-25] MEDS: Lactated Ringers 1,000 ML 125 ML IVCONT ×3 (01:03→17:41)
--- NOTE | 2022-11-25 05:37 | PM.UROPN ---
Subjective Subjective Date of Service: 11/24/22 Patient reports: still having pain Interval history: Vasquez Bishop is a 27 year old male is [place]-speaking with a PMHx kidney stones was presenting to the ER with complaints of persistent left flank abdominal pain that is radiating now to the left lower quadrant/suprapubic area for 3 weeks worse today.? Reports associated dysuria with nausea.? Patient was seen here on 11/12/2022 for same complaint was diagnosed with a kidney stone 5 mm in the distal ureter pain was controlled therefore he was sent home oxycodone and instructions return if any new or worsening symptoms.? Therefore at this time patient returned due to persistent now worsening symptoms. Denies any fevers, headaches, neck pain/stiffness, sore throat, nasal congestion, cough, hematuria, black or bloody stools, constipation, recent travel or sick contacts or any other symptoms complaints or concerns at this time. UA nitrite positive. 11/23/2022--CT imagings note 5 mm stone in the left UVJ vs bladder, mild left ureteral dilatation. Pt still having pain. Physical Exam Vital Signs: Vital Signs: Last Vital Signs Temp 97.7 F 11/25/22 03:05 Pulse 66 11/25/22 03:05 Resp 17 11/25/22 03:05 BP 115/76 11/25/22 03:05 Pulse Ox 95 11/25/22 03:05 O2 Del Method 11/25/22 03:05 BMI result Body Mass Index 26.7 Const: General: healthy appearing, no acute distress and well developed Orientation/consciousness: patient oriented x3 HEENT: Head: Yes normocephalic and Yes atraumatic Eyes: Conjunctivae: conjunctivae normal Neck: Neck: Yes normal visual inspection Chest: Chest palpation & inspection: normal inspection of the chest Resp: Effort & Inspection: normal respiratory effort Cardio: Rate: regular rate GI: Inspection: Yes normal to inspection Palpation (GI): Soft to palpation and Tenderness to palpation present (GI) in the LLQ : General: Yes CVA tenderness (left) Back/Spine/Pelvis: Back: CVA tenderness (left) Skin: General skin exam: no rashes or lesions noted Neuro: General: patient oriented x3 Extrem: General: No pedal edema Psych: Appearance: grossly normal Affect: normal affect Urology Results Labs 11/24/22 05:15 11/24/22 05:15 Labs: Laboratory Results - last 24 hr 11/24/22 11/24/22 05:15 05:15 WBC 10.8 RBC 5.28 Hgb 14.8 Hct 43.8 MCV 83.0 MCH 28.0 MCHC 33.8 RDW 12.6 Plt Count 262 MPV 11.2 Immature Gran % (Auto) 0.4 Neut % (Auto) 78.3 H Lymph % (Auto) 16.1 L [place] % (Auto) 5.0 Eos % (Auto) 0.1 Baso % (Auto) 0.1 Lymph # (Auto) 1.7 [place] # (Auto) 0.5 Eos # (Auto) 0.0 Baso # (Auto) 0.0 Abs Immat Gran (auto) 0.04 H Absolute Neuts (auto) 8.4 H Absolute Nucleated RBC 0.000 Nucleated RBC % (auto) 0.0 Sodium 140 Potassium 4.1 Chloride 106 Carbon Dioxide 24 Anion Gap 14 BUN 13 Creatinine 0.90 Estim Creat Clear Calc 118.2 Estimated GFR > 60 Random Glucose 123 H Calcium 9.6 Date of Service: 11/24/22 EXAMINATION: US RETROPERITONEAL COMPLETE (RENAL) CLINICAL INFORMATION: Left ureteral stone versus bladder stone. COMPARISON: CT abdomen pelvis 11/23/2022 TECHNIQUE: Real-time imaging of the kidneys and bladder. FINDINGS: RIGHT KIDNEY: 11.2 x 5.1 x 4.7 cm (SAG x AP x TRV). The kidney is normal in size, contour, and echogenicity. Renal cortical thickness is normal. No calculi identified sonographically or focal parenchymal lesions. No hydronephrosis. LEFT KIDNEY: 12.4 x 6.1 x 4.6 cm (SAG x AP x TRV). The kidney is normal in size, contour, and echogenicity. Renal cortical thickness is normal. No focal parenchymal lesions or hydronephrosis. 2 mm nonobstructing lower pole renal stone.? BLADDER: A 7 mm stone is noted in the region of the left ureterovesicular junction. Bilateral ureteral jets are demonstrated. Prevoid bladder volume is 206 mL. Postvoid bladder volume is 14 mL. Prostate is normal in volume measuring 5.5 mL. IMPRESSION: A 7 mm stone is noted in the region of the left ureterovesicular junction. Bilateral ureteral jets are demonstrated. No hydronephrosis. ? 2 mm nonobstructing left lower pole renal stone.. Multiple other previously seen stones are not identified sonographically. Progress Note: A&P Assessment and plan (1) Kidney stones: Status: Acute (2) Left ureteral stone: Status: Acute Plan Plan for Cystoscopy, Left ureteroscopy, possible laser lithotripsy, possible ureteral stent. Risks discussed included but not limited to, possible need to repeat procedure if stone is not completely fragmented, Irritative voiding symptoms, bladder spasms, urgency, blood in urine. Time Spent With Patient Time: Total time managing care of this patient today ____ minutes. Progress Note: Quality Stroke Does the patient have a stroke diagnosis?: No
[2022-11-25] MEDS: HYDROmorphone HCl 0.5 MG/0.5 ML SYRINGE IVPUSH ×3 (05:50→20:06)
--- NOTE | 2022-11-25 06:07 | PC.NURSE ---
Pt has been voiding in the urinal still c/o on and off left flank pain going to the left groin and dysuria, prn Dilaudid has been given with good effect, NPO post MN instructed to pt and complied. Short stay NARCISA Brooks called and report was given, pt will possibly be transported for the procedure around 1000.
[2022-11-25 08:00] LABS: Glucose, Whole Blood 79 mg/dL (60-115)
[2022-11-25] MEDS: oxyCODONE HCl Immed Release 5 MG TABLET PO ×3 (08:58→22:10)
[2022-11-25] MEDS: levoFLOXacin/D5W 500 MG/100 ML PIGGYBACK 100 MG IV (08:58)
[2022-11-25 10:14] LABS: Glucose, Whole Blood 95 mg/dL (60-115)
--- NOTE | 2022-11-25 10:14 | P.CONAN_ITS ---
HPI - Anesthesia Eval Consult details Narrative: 27 yr old with kidney/ uretral stone PMFSH Active Problems Active Problems: All Active Problems (Updated 11/25/22 @ 05:41 by Leodan Barrett MD) Left ureteral stone (Acute) Left nephrolithiasis (Acute) UTI (urinary tract infection) (Acute) Acute pyelonephritis (Acute) Kidney stones (Acute) COVID-19 (Acute) Family History Family history of problems with anesthesia: No Surgical History History of Problems with Anesthesia: No Social History Social History Household Members: Family Housing: House Do you presently have visiting nurse or other home services: No Alcohol intake: current Alcohol intake frequency: holidays/special occasions only Patient Tobacco Use Status: Never used Tobacco Smoked in Last 30 Days: No Use of substances other than those prescribed or required for medical reasons: No Currently Displaying Signs/Symptoms of Drug Intoxication Withdrawal: No Any prior treatment program specific to substance use: No Have you been hit, kicked, punched, or otherwise hurt by someone within the past year? If so, by whom?: No Do you feel safe in your current relationship?: Yes Is there a partner from a previous relationship who is making you feel unsafe now?: No Are you made to feel afraid or neglected: No Shinto Healthcare Practices: n/a Advance Directives: No Advance Directives Information Provided: No Do you have thoughts of harming others: None Do you have a plan to hurt others: No Plan Recently lost weight without trying: No How much weight loss: Not applicable Eating poorly because of decreased appetite: No Nutrition screen score: 0 Nutrition Risks: No Nutritional Risk Poor oral hygiene: No service: No Current occupational status: employed Meds Allergies Allergy/AdvReac Type Severity Reaction Status Date / Time No Known Allergies Allergy Verified 11/12/22 09:40 [No Known Allergies*] Active Medications: Current Medications Acetaminophen (Acetaminophen 325 Mg Tablet) 650 mg PO Q6H PRN PRN Reason: Pain, Mild (Pain Scale 1-3) Last Admin: 11/24/22 09:18 Dose: 650 mg Docusate Sodium (Docusate Sodium 100 Mg Capsule) 100 mg PO BID JAYJAY Last Admin: 11/25/22 07:07 Dose: Not Given Hydromorphone HCl (Hydromorphone Hcl 0.5 Mg/0.5 Ml Syringe) 0.5 mg IVPUSH Q4H PRN; Protocol PRN Reason: Pain, Severe (Pain Scale 7-10) Last Admin: 11/25/22 05:50 Dose: 0.5 mg Levofloxacin (Levaquin) 500 mg in 100 mls @ 100 mls/hr IV Q24H [facility] Last Infusion: 11/25/22 10:01 Dose: Infused Lactated Ringer's (Lr) 1,000 mls @ 125 mls/hr IVCONT .Q8H [facility] Last Admin: 11/25/22 09:00 Dose: 125 mls/hr Ondansetron HCl (Ondansetron Hcl 4 Mg/2 Ml Vial) 4 mg IVPUSH Q8H PRN PRN Reason: Nausea and Vomiting Last Admin: 11/23/22 13:47 Dose: 4 mg Oxycodone HCl (Oxycodone Hcl Immed Release 5 Mg Tablet) 5 mg PO Q6H PRN PRN Reason: Pain, Moderate (Pain Scale 4-6 Last Admin: 11/25/22 08:58 Dose: 5 mg Pharmacy Consult (Consult Rx Perform Med Rec) 1 each MISCELLANE ONCE PRN PRN Reason: Consult order Sodium Chloride (0.9 % Sodium Chloride Flush 3 Ml Syringe) 3 ml IVFLUSH QSHIFT [facility] Last Admin: 11/25/22 06:55 Dose: Not Given Tamsulosin HCl (Tamsulosin Hcl 0.4 Mg Capsule) 0.4 mg PO BEDTIME [facility] Last Admin: 11/24/22 20:08 Dose: 0.4 mg Home Medications Medication Instructions Recorded Confirmed Last Taken Type multivitamin 1 tab PO DAILY 11/23/22 11/23/22 Unknown History phenazopyridine 95 mg tablet (Azo 190 mg PO TID PRN Pain 11/23/22 11/23/22 11/23/22 History Urinary Pain Relief) Exam Exam Date and Time: November 25, 2022 1014 Height,Weight and Vital Signs: Height 5 ft 8.9 in Weight 82 kg Last Vital Signs Temp 97.6 F 11/25/22 08:00 Pulse 67 11/25/22 08:00 Resp 18 11/25/22 08:00 BP 124/76 11/25/22 08:00 Pulse Ox 97 11/25/22 08:00 O2 Del Method 11/25/22 08:00 Pertinent Lab Results Pertinent Lab Results: Laboratory Tests 11/23/22 11/23/22 11/23/22 08:21 09:13 09:13 WBC 5.2 RBC 5.99 H Hgb 16.6 Hct 49.5 MCV 82.6 MCH 27.7 MCHC 33.5 RDW 12.8 Plt Count 242 MPV 10.6 Immature Gran % (Auto) 0.2 Neut % (Auto) 47.4 Lymph % (Auto) 39.0 [place] % (Auto) 7.4 Eos % (Auto) 5.4 H Baso % (Auto) 0.6 Lymph # (Auto) 2.0 [place] # (Auto) 0.4 Eos # (Auto) 0.3 Baso # (Auto) 0.0 Abs Immat Gran (auto) 0.01 Absolute Neuts (auto) 2.5 Absolute Nucleated RBC 0.000 Nucleated RBC % (auto) 0.0 PT INR Sodium Potassium Chloride Carbon Dioxide Anion Gap BUN Creatinine Estim Creat Clear Calc Estimated GFR POC Glucose Random Glucose Lactic Acid 1.0 Calcium Magnesium Total Bilirubin AST ALT Alkaline Phosphatase Total Protein Albumin Urine Color Dark Yellow Urine Appearance Clear Urine pH 5.5 Ur Specific [place] 1.025 Urine Protein Trace Urine Glucose (UA) Negative Urine Ketones Negative Urine Blood Large (3+) H Urine Nitrite Positive H Ur Leukocyte Esterase Small (1+) H Urine RBC >20 H Urine WBC 0-5 Ur Squamous Epith Cells 0-2 Urine Bacteria None Seen Hyaline Casts 0-2 Chlam trachomat DNA PCR COVID-19 ([facility]) COVID-19 Clin Com N.gonorrhoeae DNA (PCR) 11/23/22 11/23/22 11/23/22 09:13 09:13 09:25 WBC RBC Hgb Hct MCV MCH MCHC RDW Plt Count MPV Immature Gran % (Auto) Neut % (Auto) Lymph % (Auto) [place] % (Auto) Eos % (Auto) Baso % (Auto) Lymph # (Auto) [place] # (Auto) Eos # (Auto) Baso # (Auto) Abs Immat Gran (auto) Absolute Neuts (auto) Absolute Nucleated RBC Nucleated RBC % (auto) PT 12.1 INR 1.1 Sodium 140 Potassium 4.3 Chloride 108 Carbon Dioxide 24 Anion Gap 12 BUN 16 Creatinine 0.92 Estim Creat Clear Calc 115.6 Estimated GFR > 60 POC Glucose Random Glucose 95 Lactic Acid Calcium 9.3 Magnesium 2.0 Total Bilirubin 0.7 AST 17 ALT 27 Alkaline Phosphatase 52 Total Protein 7.1 Albumin 4.4 Urine Color Urine Appearance Urine pH Ur Specific [place] Urine Protein Urine Glucose (UA) Urine Ketones Urine Blood Urine Nitrite Ur Leukocyte Esterase Urine RBC Urine WBC Ur Squamous Epith Cells Urine Bacteria Hyaline Casts Chlam trachomat DNA PCR NOT DETECTED COVID-19 ([facility]) COVID-19 Clin Com N.gonorrhoeae DNA (PCR) NOT DETECTED 11/23/22 11/24/22 11/24/22 10:05 05:15 05:15 WBC 10.8 RBC 5.28 Hgb 14.8 Hct 43.8 MCV 83.0 MCH 28.0 MCHC 33.8 RDW 12.6 Plt Count 262 MPV 11.2 Immature Gran % (Auto) 0.4 Neut % (Auto) 78.3 H Lymph % (Auto) 16.1 L [place] % (Auto) 5.0 Eos % (Auto) 0.1 Baso % (Auto) 0.1 Lymph # (Auto) 1.7 [place] # (Auto) 0.5 Eos # (Auto) 0.0 Baso # (Auto) 0.0 Abs Immat Gran (auto) 0.04 H Absolute Neuts (auto) 8.4 H Absolute Nucleated RBC 0.000 Nucleated RBC % (auto) 0.0 PT INR Sodium 140 Potassium 4.1 Chloride 106 Carbon Dioxide 24 Anion Gap 14 BUN 13 Creatinine 0.90 Estim Creat Clear Calc 118.2 Estimated GFR > 60 POC Glucose Random Glucose 123 H Lactic Acid Calcium 9.6 Magnesium Total Bilirubin AST ALT Alkaline Phosphatase Total Protein Albumin Urine Color Urine Appearance Urine pH Ur Specific [place] Urine Protein Urine Glucose (UA) Urine Ketones Urine Blood Urine Nitrite Ur Leukocyte Esterase Urine RBC Urine WBC Ur Squamous Epith Cells Urine Bacteria Hyaline Casts Chlam trachomat DNA PCR COVID-19 ([facility]) Negative COVID-19 Clin Com See Note N.gonorrhoeae DNA (PCR) 11/25/22 07:56 WBC RBC Hgb Hct MCV MCH MCHC RDW Plt Count MPV Immature Gran % (Auto) Neut % (Auto) Lymph % (Auto) [place] % (Auto) Eos % (Auto) Baso % (Auto) Lymph # (Auto) [place] # (Auto) Eos # (Auto) Baso # (Auto) Abs Immat Gran (auto) Absolute Neuts (auto) Absolute Nucleated RBC Nucleated RBC % (auto) PT INR Sodium Potassium Chloride Carbon Dioxide Anion Gap BUN Creatinine Estim Creat Clear Calc Estimated GFR POC Glucose 79 Random Glucose Lactic Acid Calcium Magnesium Total Bilirubin AST ALT Alkaline Phosphatase Total Protein Albumin Urine Color Urine Appearance Urine pH Ur Specific [place] Urine Protein Urine Glucose (UA) Urine Ketones Urine Blood Urine Nitrite Ur Leukocyte Esterase Urine RBC Urine WBC Ur Squamous Epith Cells Urine Bacteria Hyaline Casts Chlam trachomat DNA PCR COVID-19 ([facility]) COVID-19 Clin Com N.gonorrhoeae DNA (PCR) Airway Mallampati Class: II TM Dist: >3cm Neck ROM: Full Heart: rrf Lungs: cta Other: feeling faint and dizzy . BS 95 , anxious Assessment and Plan Assessment Anesthesia Assessment: Anesthesia Plan Discussed Final Anesthetic Review Family History of Problems with Anesthesia: No History of Problems with Anesthesia: No NPO: Yes ASA Class: II Final Preanesthetic Review: No Changes in Pt Med Stat, Meds/Allgs Chart Reviewed, Consent Obtained/Reviewed and Anes Risks/Benef Reviewed Patient Risk: Low Procedure Risk: Low Anesthetic Plan Anesthetic Plan: GA Disposition: Standard PACU (D5 W 100 ml bolus)
--- NOTE | 2022-11-25 10:21 | PC.NURSE ---
Per anesthesia Dr Goel, to give 100ml D5 IV for symptomatic POC 95, sweating, shaking, tachy breathing.
--- NOTE | 2022-11-25 10:46 | PC.NURSE ---
POC recheck 108
--- NOTE | 2022-11-25 10:48 | MHC.SHP ---
Pre-Procedural Eval Section A Date of Service: 11/25/22 The patient is an INPATIENT: Yes Section B Chief Complaint: Kidney Stone UTI Hydronephrosis Allergies: Allergies Allergy/AdvReac Type Severity Reaction Status Date / Time No Known Allergies Allergy Verified 11/12/22 09:40 [No Known Allergies*] Plan Diagnosis/Plan: Unchanged I have reviewed the history and physical and performed a pertinent physical examination on my patient. No changes have occurred unless specified. Plan for Cystoscopy, left ureteroscopy, possible laser lithotripsy, possible ureteral stent. Risks discussed included but not limited to, possible need to repeat procedure if stone is not completely fragmented, Irritative voiding symptoms, bladder spasms, urgency, blood in urine. Time Spent With Patient Time: Total time managing care of this patient today ____ minutes.
[2022-11-25 10:50] LABS: Glucose, Whole Blood 108 mg/dL (60-115)
--- NOTE | 2022-11-25 12:16 | W.PM.OPN ---
Operative Note Operative Note Date of Service: 11/25/22 Narrative: PreOperative Diagnosis:?? Left ureteral stone Post Operative Diagnosis:?? left ureteral stone Procedure: - Cystoscopy, left retrograde, left ureteroscopy laser lithotripsy stone extraction Surgeon:?Dr Leodan Barrett Anesthesia:? General Procedure: After informed consent was verified the patient was brought to the operating placed on the OR table in supine position.? General Anesthesia was administered per protocol.? The patient was placed in lithotomy position, prepped and draped in the usual sterile fashion.? Safety pause time-out and side of surgery confirmed.? Antibiotics confirmed. The patient previously received scheduled dose of Levaquin. 2% lidocaine jelly 10 mL was passed transurethrally. A 22 [place] cystoscope was inserted transurethrally, the bulbous urethra was within normal limits. The prostatic urethra was nonobstructive. The bladder was visualized.? Both ureteric orifices were in normal position. An open-ended ureteral catheter was passed into the left ureteral orifice and a retrograde examination was performed. There was a filling defect in the left intramural ureter and dilatation proximal. A guidewire was passed through the ureteral catheter into the kidney. The balloon dilator size 12 fr x 4 cm was passed over the guide -wire the balloon was inflated to 10 mmHg and the intramural ureter was dilated for 60 seconds. The balloon was deflated and removed. After removing the balloon dilator a 2nd guidewire was then passed into the kidney to use as a safety. The cystoscope was removed, leaving both guidewires in place. One guidewire was used as the safety and was attached to the draping. The semi rigid ureteroscope was passed over one of the guidewires to the level of the stone in the distal ureter. One guidewire was then removed. Laser lithotripsy of the stone was done using the 365 fiber with a settings 0.8 joules by 6 hertz. There was good fragmentation of the stone. The 0 degree basket was passed through the ureteroscope, and stone fragment was removed to send for analysis. The ureteroscope was removed. The cystoscope replaced transurethrally. The bladder was emptied.?There was no significant clots. Plan was not to place a stent. The safety guide wire was removed. The rigid cystoscope was removed. ? 2% lidocaine jelly 10 mL was passed transurethrally. The patient tolerated the procedure well and was brought to the recovery room in stable condition. Complications: None Drains: None
[2022-11-25] MEDS: Phenazopyridine HCL 200 MG TABLET PO (12:36)
[2022-11-25] MEDS: Acetaminophen 325 MG TABLET 650 MG PO ×2 (15:49→22:10)
[2022-11-25] MEDS: LORazepam 2 MG/ML VIAL 0.5 MG IVPUSH (17:33)
[2022-11-25] MEDS: Ketorolac Tromethamine 15 MG/ML VIAL IVPUSH ×2 (17:34→22:37)
[2022-11-25] MEDS: 0.9 % Sodium Chloride Flush 3 ML SYRINGE IVFLUSH (20:06)
[2022-11-25] MEDS: Tamsulosin HCL 0.4 MG CAPSULE PO (20:06)
[2022-11-25] MEDS: Docusate Sodium 100 MG CAPSULE PO (20:06)
[2022-11-26] MEDS: HYDROmorphone HCl 0.5 MG/0.5 ML SYRINGE IVPUSH ×3 (00:09→08:25)
[2022-11-26] MEDS: oxyCODONE HCl Immed Release 5 MG TABLET PO ×2 (02:43→10:25)
[2022-11-26 03:07] VITALS: BP 137/81; PULSE 70; RESP 18; TEMP 36.4; O2SAT 98
[2022-11-26] MEDS: Ketorolac Tromethamine 15 MG/ML VIAL IVPUSH ×2 (05:09→11:31)
[2022-11-26 07:48] VITALS: BP 122/73; PULSE 78; RESP 17; TEMP 36.4; O2SAT 97
[2022-11-26] MEDS: Docusate Sodium 100 MG CAPSULE PO (08:25)
[2022-11-26 10:16] VITALS: BP 127/71; PULSE 73; RESP 17; TEMP 36.4; O2SAT 96
--- NOTE | 2022-11-26 10:17 | HO.POSTANES ---
Post Anesthesia Evaluation Post Anesthesia Evaluation Vital Signs: Vital Signs Temp Pulse Resp BP Pulse Ox O2 Del Method 11/26/22 07:48 97.5 F 78 17 122/73 97 Room Air 11/26/22 03:07 97.6 F 70 18 137/81 98 Room Air 11/25/22 23:23 97.8 F 84 18 136/82 96 Room Air Anesthesia: General Mental Status: Awake Pain Control: Satisfactory (pain difficult to control) Nausea/Vomiting: None Hydration: Adequate Anesthesia-Related Issues: No Anes. Related Issues
[2022-11-26] MEDS: 0.9 % Sodium Chloride Flush 3 ML SYRINGE IVFLUSH (10:28)
[2022-11-26] MEDS: levoFLOXacin/D5W 500 MG/100 ML PIGGYBACK 100 MG IV (10:28)
--- NOTE | 2022-11-26 12:26 | PM.UROPN ---
Subjective Subjective Date of Service: 11/26/22 Patient reports: feels better Interval history: Vasquez Bishop is a 27 year old male is Amharic-speaking with a PMHx kidney stones was presenting to the ER with complaints of persistent left flank abdominal pain that is radiating now to the left lower quadrant/suprapubic area for 3 weeks worse today.? Reports associated dysuria with nausea.? Patient was seen here on 11/12/2022 for same complaint was diagnosed with a kidney stone 5 mm in the distal ureter pain was controlled therefore he was sent home oxycodone and instructions return if any new or worsening symptoms.? Therefore at this time patient returned due to persistent now worsening symptoms. Denies any fevers, headaches, neck pain/stiffness, sore throat, nasal congestion, cough, hematuria, black or bloody stools, constipation, recent travel or sick contacts or any other symptoms complaints or concerns at this time. UA nitrite positive. 11/23/2022--CT imagings note 5 mm stone in the left UVJ vs bladder, mild left ureteral dilatation. 11/24/2022- Renal sono - 7 mm stone at Left UVJ, 11/25/2022- sp left ureteroscopy, laser lithotripsy stone extraction, post op, patient required IV pain meds. 11/26/2022 - feels better, c/o's dysuria, Pt still some pain. No BM. Discussed that pain will improve with time, dysuria to be expected due to procedure. MOM for constipation, explained narcotics worsen constipation. Physical Exam Vital Signs: Vital Signs: Last Vital Signs Temp 97.6 F 11/26/22 10:16 Pulse 73 11/26/22 10:16 Resp 17 11/26/22 10:16 BP 127/71 11/26/22 10:16 Pulse Ox 96 11/26/22 10:16 O2 Del Method 11/26/22 10:16 BMI result Body Mass Index 26.7 Const: General: healthy appearing, no acute distress and well developed Orientation/consciousness: patient oriented x3 HEENT: Head: Yes normocephalic and Yes atraumatic Eyes: Conjunctivae: conjunctivae normal Neck: Neck: Yes normal visual inspection Chest: Chest palpation & inspection: normal inspection of the chest Resp: Effort & Inspection: normal respiratory effort Cardio: Rate: regular rate GI: Inspection: Yes normal to inspection Palpation (GI): Soft to palpation and Tenderness to palpation present (GI) Skin: General skin exam: no rashes or lesions noted Neuro: General: patient oriented x3 Extrem: General: No pedal edema Psych: Appearance: grossly normal Affect: normal affect Urology Results Labs 11/24/22 05:15 11/24/22 05:15 Progress Note: A&P Assessment and plan (1) Kidney stones: Status: Acute (2) Acute pyelonephritis: Status: Acute Plan Cont levaquin 500 mg daily DC today, fu outpatient Time Spent With Patient Time: Total time managing care of this patient today ____ minutes. Progress Note: Quality Stroke Does the patient have a stroke diagnosis?: No
[2022-11-26] MEDS: Milk of Magnesia 30 ML ORAL.SUSP PO (13:38)
[2022-11-28 23:57] LABS: Stone Source URETERAL STONE
--- NOTE | 2022-12-16 13:45 | PM.DS ---
DS: Providers Provider Date of Service: 11/23/22 Date of admission: 11/23/22 13:20 Date of discharge: 11/26/22 Primary care physician: Shelley Physician Admitting clinician: Leodan Barrett Attending physician on admission: Leodan Barrett Attending physician on discharge: Leodan Barrett Discharging clinician: Leodan Barrett DS: Diagnosis Discharge Diagnosis (1) Kidney stones: Status: Acute (2) Acute pyelonephritis: Status: Resolved DS: Summary Hospital Course Hospital Course: Vasquez Bishop is a 27 year old male is Trinidadian-speaking with a PMHx kidney stones was presenting to the ER with complaints of persistent left flank abdominal pain that is radiating now to the left lower quadrant/suprapubic area for 3 weeks worse today.? Reports associated dysuria with nausea.? Patient was seen here on 11/12/2022 for same complaint was diagnosed with a kidney stone 5 mm in the distal ureter pain was controlled therefore he was sent home oxycodone and instructions return if any new or worsening symptoms.? Patient returned due to persistent, now worsening symptoms. Denies any fevers, headaches, neck pain/stiffness, sore throat, nasal congestion, cough, hematuria, black or bloody stools, constipation, recent travel or sick contacts or any other symptoms complaints or concerns at this time. UA nitrite positive. 11/23/2022--CT imagings note 5 mm stone in the left UVJ vs bladder, mild left ureteral dilatation. 11/24/2022- Renal sono - 7 mm stone at Left UVJ, 11/25/2022- sp left ureteroscopy, laser lithotripsy stone extraction, post op, patient required IV pain meds. 11/26/2022 - feels better, c/o's dysuria, Pt still some pain. No BM. Discussed that pain will improve with time, dysuria to be expected due to procedure.? MOM for constipation, explained narcotics worsen constipation. Status at Discharge Overall status at discharge: patient is back to baseline Time Spent with Patient Time attestation: Total time managing care of this patient today ____ minutes. Discharge coordination time: Greater than 30 minutes Quality: Safe Use of Opioids Does Pt have an Active Cancer Diagnosis on the Problem List?: No Quality: Stroke Does the patient have a stroke diagnosis?: No Physical Exam Vital Signs: Vital Signs: Last Vital Signs Temp 97.6 F 11/26/22 10:16 Pulse 73 11/26/22 10:16 Resp 17 11/26/22 10:16 BP 127/71 11/26/22 10:16 Pulse Ox 96 11/26/22 10:16 O2 Del Method Room Air 11/26/22 10:16 BMI result Body Mass Index 26.7 DS: Data Data Completed and Pending Completed studies during hospitalization [Text1]: Pending at discharge 11/25/22 12:16 Surgical [PTH] Routine Procedures Extirpation of Matter from Left Ureter, Via Natural or Artificial Opening Endoscopic (11/23/22) Fluoroscopy of Left Kidney, Ureter and Bladder (11/23/22) Discharge Plan Discharge Anticipated Discharge Date/Time: 11/25/22 13:00 Patient Disposition: Home Health Service Discharge Diagnosis: Left ureteral stone Referrals: Physician,None [Primary Care Provider] - 1 Week Discharge Medications: New phenazopyridine [Pyridium] 200 mg tablet 200 mg PO TID Qty: 18 0RF Rx Instructions: take med with food as can cause nausea levofloxacin 500 mg tablet 500 mg PO DAILY 3 Days Qty: 3 0RF ibuprofen 600 mg tablet 600 mg PO Q8H PRN (Reason: pain) Qty: 20 0RF Continued phenazopyridine [Azo Urinary Pain Relief] 95 mg Tablet 190 mg PO TID PRN (Reason: Pain) multivitamin Tablet 1 tab PO DAILY acetaminophen [Tylenol Extra Strength] 500 mg tablet 1,000 mg PO QID PRN (Reason: fever or pain) Qty: 14 0RF Discharge Orders: Discharge Order (Routine); Ordered 11/26/22 Ordered By: Leodan Barrett Diet: Advance to usual diet Activity on Discharge: see below Stand Alone Forms: Patient Portal Discharge page Activity Restrictions/Additional Instructions: No heavy lifting over 20 pounds for 5 days, RTW Thursday12/01/22 with no restrictions Care Plan Goals: outpatient follow up with Dr. Barrett Health Concerns: history of kidney stone, important to hydrate, low sodium diet Plan of Treatment: Low sodium diet, increase water intake 40 to 60 ounces daily Assessment: Stable Discharge Date/Time: 11/26/22 14:30
== END 2022-11-26 14:30 | disposition home health service (06) | DRG 694 ==
LOC: HO.ED 12:30 → HO.EDOVER 13:33 → HO.S3 16:27
PROVIDERS: Physician Assistant Medical; Admitting Provider Urology; Emergency Provider Emergency Medicine; Visit Provider Urology
PROC: 0TC78ZZ Extirpation of Matter from Left Ureter, Via Natural or Artificial Opening Endoscopic (ICD-10-PCS; principal; 2022-11-25 11:20)
DX: N20.2 Calculus of kidney with calculus of ureter (principal); N10 Acute pyelonephritis; Z20.822 Contact with and (suspected) exposure to COVID-19; Z87.442 Personal history of urinary calculi; Z79.899 Other long term (current) drug therapy
CPT/HCPCS: 0353U; 36415; 74176; 76770; 80048; 80053; 81001; 82365; 82947; 83605; 83735; 85025; 85610; 87040; 87086; 87635; 88300; 99285; C1726; C1758; C1769; J1100; J1170; J1885; J1956; J2060; J2250; J2370; J2405; J3010; Q9967

== ENCOUNTER 2024-12-19 17:19 | Emergency (ER) | payer MEDICAID, OTHER, SELFPAY ==
[2024-12-19] VITALS (9 sets, daily range): BP systolic 114–154; BP diastolic 68–106; PULSE 82–90; RESP 14–20; TEMP 36.2–36.9; O2SAT 95–99; BMI 35.1
--- NOTE | ~2024-12-19 | CT_ITS ---
CLINICAL HISTORY: RIght flank pain. kdiney stones? CT abdomen and pelvis without contrast Comparison: CT/REG/SR - CT ABDOMEN PELVIS WO IV CON - 11/23/22 08:45 EST Findings: No consolidation or effusion. The gallbladder is unremarkable. No biliary ductal dilatation. Unenhanced liver, spleen, pancreas and adrenal glands are unremarkable. Bilateral nonobstructing renal stones. 4 mm stone just proximal to right ureterovesical junction with mild hydronephrosis and hydroureter. 1.5 cm round low-attenuation lesion of the left kidney suggestive of a cyst. No bowel obstruction, pneumoperitoneum, or pneumatosis. Pelvic contents unremarkable. Normal appendix. The bones are intact. IMPRESSION: 1. 4 mm stone just proximal to right ureterovesical junction with mild hydronephrosis and hydroureter. 2. Bilateral nonobstructing renal stones. This document has been electronically signed by: Rosa Sue MD on 12/19/2024 19:12:17
--- OUTSIDE RECORDS SUMMARY | 2024-12-19 18:17 | XMS_ITS | Clinical Summary ---
Author Organization [employer] Address [address] [place] [address] Care Team Providers Care Educational Specialist Name Role Phone Unavailable Primary Care Provider Unavailabl e Social History Tobacco Use Types Packs/Day Years Used Date Smoking Tobacco: Never Assessed Sex and Gender Information Value Date Recorded Sex Assigned at Male 07/21/2022 10:35 AM EDT Legal Sex Male 10:35 AM EDT Gender Identity Male 07/21/2022 10:35 AM EDT Sexual Orientation Don't know 07/21/2022 10 :35 AM EDT Plan of Treatment Health Maintenance Due Date Last Done Comments Depression Screening 1994 Alcohol/Substance Use Screening 2006 Tobacco Screening 2006 Family Planning (PISQ) 2009 DTaP/Tdap/Td Vaccines (1 - Tdap) 2013 Hepatitis B Vaccines (1 of 3 - 19+ 3-dose series) 2013 COVID-19 Vaccine ( - 2023-2 5 season) 2024 Influenza Vaccine (#1) 2024 Zoster Vaccines (1 of 2) 2044 RSV Patients and Pa tients Aged 60 years or older (1 - 1-dose 75+ series) 2069 HIB Vaccines Aged Out No longer eligi ble based on patient's age to complete this topic HPV Vaccines Aged Out No longer eligi ble based on patient's age to complete this topic Hepatitis A Vaccines Aged Out No long er eligible based on patient's age to complete this topic IPV Vaccines Aged Out No longer eligi ble based on patient's age to complete this topic Meningococcal Vaccine Aged Out No paris margaret eligible based on patient's age to complete this topic Pneumococcal Vaccine: Pediat rics (0 to 5 Years) and At-Risk Patients (6 to 49) Years) Aged Out No longer eligible b ased on patient's age to complete this topic RSV under 20 months Aged Out No longe r eligible based on patient's age to complete this topic Rotavirus Vaccines Aged Out No longer eligible based on patient's age to complete this topic
--- OUTSIDE RECORDS SUMMARY | 2024-12-19 18:17 | XMS_ITS | Encounter Summary ---
Author Organization [employer] Address [address] [place] [address] Care Team Providers Care Wood Carver Hand Name Role Phone Unavailable Primary Care Provider Unavailabl e Encounter Details Date Type Department Care Team (Latest Contact Info) Description 03/31/2019 Abstract [facility]VERSION[facility] Dental, Provider, DDS Social History Tobacco Use Types Packs/Day Years Used Date Smoking Tobacco: Never Assessed Sex and Gender Information Value Date Recorded Sex Assigned at Male 07/21/2022 10:35 AM EDT Legal Sex Male 10:35 AM EDT Gender Identity Male 07/21/2022 10:35 AM EDT Sexual Orientation Don't know 07/21/2022 10 :35 AM EDT documented as of this encounter Plan of Treatment Not on file documented as of this encounter Visit Diagnoses Not on filedocumented in this encounter
[2024-12-19 18:30] LABS: MANUAL DIFF FLAG NO
[2024-12-19 18:32] LABS: Basophils Percent Auto 0.4 % (0-2); Eosinophils Absolute Auto 0.4 X10*3/uL (0.0-0.4); Eosinophils Percent Auto 5.2 % (0-4); Hematocrit 46.6 % (42.0-52.0); Hemoglobin 15.9 g/dl (14.0-18.0); Imm Gran Abs Auto 0.03 X10*3/uL (0.00-0.03); Imm Gran Pct Auto 0.4 % (0.0-0.4); Lymphocytes Absolute Auto 1.3 X10*3/uL (1.2-4.9); Lymphocytes Percent Auto 17.4 % (20-40); Mean Corpuscular HGB Conc 34.1 g/dl (31.0-36.0); Mean Corpuscular Hemoglobin 28.4 pg (27.0-33.0); Mean Corpuscular Volume 83.4 fL (80.0-98.0); Mean Platelet Volume 10.4 fL (9.4-12.4); Monocytes Absolute Auto 0.9 X10*3/uL (0.1-1.2); Monocytes Percent Auto 11.8 % (2-11); Neutrophils Percent Auto 64.8 % (45-73); Platelet Count 185 X10*3/uL (160-400); Red Blood Count 5.59 X10*6/uL (4.60-5.80); Red Cell Distribution Width 13.1 % (11.0-16.0); White Blood Count 7.7 X10*3/uL (4.8-10.8)
[2024-12-19 18:46] LABS: Alanine Aminotransferase 52 U/L (0-40); Alkaline Phosphatase 59 U/L (39-117); Anion Gap 12 (12-20); Aspartate Amino Transferase 31 U/L (5-37); Bilirubin Total 0.3 mg/dL (0.0-1.0); Blood Urea Nitrogen 15 mg/dL (9-16); Calcium 9.3 mg/dL (8.4-10.2); Carbon Dioxide 25 mmol/L (22-29); Chloride 108 mmol/L (96-108); Creatinine Clr Calc Pharmacy 82.1; Estimated Glomerular Filt Rate > 60; Glucose Random 121 mg/dL (60-115); Potassium 4.3 mmol/L (3.3-5.1); Sodium 141 mmol/L (135-145); Total Protein 6.8 g/dL (6.5-8.0)
--- NOTE | 2024-12-19 19:25 | MHC.EDTECH ---
Patient urine sample collected and sent to lab .
[2024-12-19 19:29] LABS: Appearance Urine Clear; Color Urine Yellow; Glucose Urine UA Negative (Negative); Leukocyte Esterase Urine Negative (Negative); Nitrite Urine Negative (Negative); Specific Gravity - Urine 1.025 (1.005-1.025); UMIC TRIGGER UACC YES; Urine Blood Large (3+) (Negative); Urine Ketones Negative (Negative); Urine Protein Trace mg/dL (Neg-Trace)
[2024-12-19 19:38] LABS: Bacteria Urine None Seen (None Seen); Hyaline Casts Urine 0-2 /LPF (0-2); RBC Urine >20 /HPF (0-2); Squamous Epithelial Cell Urine 0-2 /HPF (0-2); WBC Urine 0-5 /HPF (0-5)
[2024-12-19] MEDS: Tamsulosin HCL 0.4 MG CAPSULE PO (19:41)
[2024-12-19] MEDS: Morphine Sulfate 4 MG/ML CARTRIDGE IVPUSH (19:41)
[2024-12-19] MEDS: Ketorolac Tromethamine 15 MG/ML VIAL IVPUSH (19:41)
[2024-12-19] MEDS: ondansetron HCL 4 MG/2 ML VIAL IVPUSH (19:41)
[2024-12-19] MEDS: 0.9 % Sodium Chloride 1,000 ML 999 ML IV (19:41)
--- NOTE | 2024-12-19 20:41 | ED.ABDPAIN ---
HPI - Abdominal Pain General Chief Complaint: Abdominal Pain Stated Complaint: ? kidney stones Time Seen by Provider: 12/19/24 19:09 Source: patient Limitations: no limitations and language barrier History of Present Illness ED Provider: Yanet Bañuelos PA-C HPI narrative: 29-year-old male with a history of kidney stones presents with right flank pain x2 days. Pain originates over right flank radiates to right lower quadrant. Pain fluctuates in intensity becoming severe at times. Associated nausea, vomiting, hematuria but no dysuria. Denies fever. Related Data Home Medications ?Medication ?Instructions ?Recorded ?Confirmed multivitamin 1 tab PO DAILY 11/23/22 11/23/22 phenazopyridine 95 mg tablet (Azo 190 mg PO TID PRN Pain 11/23/22 11/23/22 Urinary Pain Relief) Previous Rx's ?Medication ?Instructions ?Recorded acetaminophen 500 mg tablet 1,000 mg (2 x 500 mg) PO QID PRN 07/14/22 (Tylenol Extra Strength) fever or pain #14 tabs ibuprofen 600 mg tablet 600 mg PO Q8H PRN pain #20 tabs 11/26/22 levofloxacin 500 mg tablet 500 mg PO DAILY 3 days #3 tabs 11/26/22 phenazopyridine 200 mg tablet 200 mg PO TID for urinary burning 11/26/22 (Pyridium) #18 tabs ketorolac 10 mg tablet 10 mg PO Q6H PRN pain #20 tabs 12/19/24 metoclopramide HCl 10 mg tablet 10 mg PO Q8H PRN nausea and 12/19/24 vomiting #10 tabs oxycodone 5 mg tablet 5 mg PO Q8H PRN pain, moderate #12 12/19/24 tabs tamsulosin 0.4 mg capsule (Flomax) 0.4 mg PO DAILY #7 caps 12/19/24 Allergies Allergy/AdvReac Type Severity Reaction Status Date / Time No Known Allergies Allergy Verified 12/19/24 17:28 [No Known Allergies*] Review of Systems Review of Systems Yes all other systems are reviewed and are negative Constitutional: Denies fatigue and Denies fever(s) Cardiovascular: Denies chest pain and Denies dyspnea Respiratory: Denies cough and Denies dyspnea Gastrointestinal: Reports abdominal pain, Reports nausea and Reports vomiting Genitourinary: Reports hematuria, Denies dysuria and Reports flank pain Endocrine: Denies fatigue PMFSH Past Medical History Attestation statement: The following information was validated with the patient. Social History Social History Household Members: Family Housing: House Do you presently have visiting nurse or other home services: No Alcohol intake: current Alcohol intake frequency: holidays/special occasions only Patient Tobacco Use Status: Never used Tobacco Advance Directives: No Advance Directives Information Provided: Yes service: No Current occupational status: employed Physical Exam ED Vital Signs: Vital Signs - 24 hr 12/19/24 17:25 12/19/24 18:28 12/19/24 18:30 Temperature 98.3 F 98.4 F Pulse Rate 82 82 Respiratory Rate 18 14 16 Blood Pressure 154/106 H 139/96 H Pulse Oximetry 98 99 Oxygen Delivery Method Room Air Room Air 12/19/24 19:19 12/19/24 19:41 12/19/24 20:58 Temperature 97.9 F Pulse Rate 89 Respiratory Rate 16 18 20 Blood Pressure 146/100 H Pulse Oximetry 97 Oxygen Delivery Method 12/19/24 21:25 12/19/24 21:43 12/19/24 23:46 Temperature 98.2 F 97.1 F Pulse Rate 90 85 Respiratory Rate 16 16 16 Blood Pressure 114/73 127/68 Pulse Oximetry 95 96 Oxygen Delivery Method Room Air Room Air BMI result Body Mass Index 35.1 Const Other: Alert, appears very uncomfortable Orientation/consciousness: patient oriented x3 Resp Effort & Inspection: normal respiratory effort Cardio Other: normal peripheral perfusion General: Yes no CVA tenderness Back/Spine/Pelvis Back: no CVA tenderness Skin Other: warm dry no rash Neuro General: patient oriented x3, gait normal, no focal motor deficits and CN's II-XI intact bilaterally Psych Other: cooperative Medical Decision Making Medical Decision Making MDM Narrative: 29-year-old male with a history of kidney stones presents with right flank pain x2 days. Pain originates over right flank radiates to right lower quadrant. Pain fluctuates in intensity becoming severe at times. Associated nausea, vomiting, hematuria but no dysuria. Denies fever. problem: Kidney stones History: Per patient I have considered the following differential diagnoses: Pyelonephritis, UTI, renal colic Plan: Screening labs including CT scan and UA were ordered from triage, urinalysis pending. I am most concerned for renal colic, he has no fevers to suggest pyelonephritis and no CVA tenderness. We will be medicating with Flomax, Zofran, morphine and fluid. I have independently reviewed the following tests: Labs:No leukocytosis, not anemic, no electrolyte abnormality kidney function at baseline, urine not infected passing hematuria CT abd /pelvis: IMPRESSION: 1. 4 mm stone just proximal to right ureterovesical junction with mild hydronephrosis and hydroureter. 2. Bilateral nonobstructing renal stones. Lab Data 12/19/24 18:27 12/19/24 18:27 Labs: Lab Results 12/19/24 12/19/24 Range/Units 18:27 19:24 WBC 7.7 (4.8-10.8) X10*3/uL RBC 5.59 (4.60-5.80) X10*6/uL Hgb 15.9 (14.0-18.0) g/dl Hct 46.6 (42.0-52.0) % MCV 83.4 (80.0-98.0) fL MCH 28.4 (27.0-33.0) pg MCHC 34.1 (31.0-36.0) g/dl RDW 13.1 (11.0-16.0) % Plt Count 185 D (160-400) X10*3/uL MPV 10.4 (9.4-12.4) fL Immature Gran % (Auto) 0.4 (0.0-0.4) % Neut % (Auto) 64.8 (45-73) % Lymph % (Auto) 17.4 L (20-40) % [place] % (Auto) 11.8 H (2-11) % Eos % (Auto) 5.2 H (0-4) % Baso % (Auto) 0.4 (0-2) % Lymph # (Auto) 1.3 (1.2-4.9) X10*3/uL [place] # (Auto) 0.9 (0.1-1.2) X10*3/uL Eos # (Auto) 0.4 (0.0-0.4) X10*3/uL Baso # (Auto) 0.0 (0.0-0.2) X10*3/uL Abs Immat Gran (auto) 0.03 (0.00-0.03) X10*3/uL Absolute Neuts (auto) 5.0 (2.0-8.3) x10*3/uL Absolute Nucleated RBC 0.000 (0.0-0.012) X10*3/uL Nucleated RBC % (auto) 0.0 (0.0-0.2) /100WBC Sodium 141 (135-145) mmol/L Potassium 4.3 (3.3-5.1) mmol/L Chloride 108 (96-108) mmol/L Carbon Dioxide 25 (22-29) mmol/L Anion Gap 12 (12-20) BUN 15 (9-16) mg/dL Creatinine 1.35 (0.5-1.4) mg/dL Estim Creat Clear Calc 82.1 Estimated GFR > 60 Random Glucose 121 H (60-115) mg/dL Calcium 9.3 (8.4-10.2) mg/dL Total Bilirubin 0.3 (0.0-1.0) mg/dL AST 31 (5-37) U/L ALT 52 H (0-40) U/L Alkaline Phosphatase 59 (39-117) U/L Total Protein 6.8 (6.5-8.0) g/dL Albumin 4.0 (3.5-5.0) g/dL Urine Color Yellow Urine Appearance Clear Urine pH 6.0 (5.0-9.0) Ur Specific [place] 1.025 (1.005-1.025) Urine Protein Trace (Neg-Trace) mg/dL Urine Glucose (UA) Negative (Negative) mg/dL Urine Ketones Negative (Negative) mg/dL Urine Blood Large (3+) H (Negative) Urine Nitrite Negative (Negative) Ur Leukocyte Esterase Negative (Negative) Urine RBC >20 H (0-2) /HPF Urine WBC 0-5 (0-5) /HPF Ur Squamous Epith Cells 0-2 (0-2) /HPF Urine Bacteria None Seen (None Seen) Hyaline Casts 0-2 (0-2) /LPF Medications Administered Discontinued Medications Generic Name Dose Route Start Last Admin Trade Name Freq PRN Reason Stop Dose Admin Sodium Chloride 1,000 mls @ 999 mls/hr 12/19/24 19:30 12/19/24 21:05 Ns IV 12/19/24 20:30 Infused .Q1H1M JAYJAY Infusion Ketorolac Tromethamine 15 mg 12/19/24 19:18 12/19/24 19:41 Ketorolac Tromethamine 15 Mg/Ml Vial IVPUSH 12/19/24 19:19 15 mg ONCE ONE Administration Metoclopramide HCl 10 mg 12/19/24 20:41 12/19/24 20:58 Metoclopramide Hcl 10 Mg/2 Ml Vial IVPUSH 12/19/24 20:42 10 mg ONCE ONE Administration Morphine Sulfate 4 mg 12/19/24 19:18 12/19/24 19:41 Morphine Sulfate 4 Mg/Ml Cartridge IVPUSH 12/19/24 19:19 4 mg ONCE ONE Administration Protocol Morphine Sulfate 10 mg 12/19/24 20:41 12/19/24 20:58 Morphine Sulfate 10 Mg/Ml Cartridge IVPUSH 12/19/24 20:42 10 mg ONCE ONE Administration Protocol Ondansetron HCl 4 mg 12/19/24 19:18 12/19/24 19:41 Ondansetron Hcl 4 Mg/2 Ml Vial IVPUSH 12/19/24 19:19 4 mg ONCE ONE Administration Tamsulosin HCl 0.4 mg 12/19/24 19:18 12/19/24 19:41 Tamsulosin Hcl 0.4 Mg Capsule PO 12/19/24 19:19 0.4 mg ONCE ONE Administration Discharge Plan Discharge Clinical Impression: Calculus of distal right ureter Patient Disposition: Home, Self-Care Instructions: Renal Colic (ED) Additional Instructions: you are passing a kidney stone. It was at the juncture where is just about to meet the bladder. All of your screening labs were normal, your urine is not infected. Use the metoclopramide as needed for nausea. Take the Flomax as directed, this will help induce urine flow. Use the oxycodone as needed for pain. Use the ketorolac as directed this is an anti-inflammatory that we will help with pain in your urinary system. Follow up with your primary care provider as needed. I am providing you with a contact for our Urology Service, in the event that you need them in the future. Prescriptions: New ketorolac 10 mg tablet 10 mg PO Q6H PRN (Reason: pain) Qty: 20 0RF Rx Instructions: maximum total duration of 5 days from all oral, intranasal, or parenteral formulations. The patient received an IV form of Toradol here in the emergency department oxycodone 5 mg tablet 5 mg PO Q8H PRN (Reason: pain, moderate) Qty: 12 0RF Rx Instructions: Partial Fill upon patient request. tamsulosin [Flomax] 0.4 mg capsule 0.4 mg PO DAILY Qty: 7 0RF metoclopramide HCl 10 mg tablet 10 mg PO Q8H PRN (Reason: nausea and vomiting) Qty: 10 0RF No Action phenazopyridine [Azo Urinary Pain Relief] 95 mg Tablet 190 mg PO TID PRN (Reason: Pain) multivitamin Tablet 1 tab PO DAILY phenazopyridine [Pyridium] 200 mg tablet 200 mg PO TID Qty: 18 0RF Rx Instructions: take med with food as can cause nausea levofloxacin 500 mg tablet 500 mg PO DAILY 3 Days Qty: 3 0RF ibuprofen 600 mg tablet 600 mg PO Q8H PRN (Reason: pain) Qty: 20 0RF acetaminophen [Tylenol Extra Strength] 500 mg tablet 1,000 mg PO QID PRN (Reason: fever or pain) Qty: 14 0RF Referrals: Thomas Brantley MD [Physician] - (kidney stones) Stand Alone Forms: Work/School Release Print Language: Chinese
[2024-12-19] MEDS: Morphine Sulfate 10 MG/ML CARTRIDGE IVPUSH (20:58)
[2024-12-19] MEDS: Metoclopramide HCl 10 MG/2 ML VIAL IVPUSH (20:58)
[2024-12-20 02:37] VITALS: BP 121/83; PULSE 74; RESP 16; TEMP 36.8; O2SAT 96
[2024-12-20] MEDS: Ketorolac Tromethamine 15 MG/ML VIAL IVPUSH (03:09)
[2024-12-20 03:10] VITALS: BP 121/83; PULSE 74; RESP 16; TEMP 36.8; O2SAT 96
== END 2024-12-20 03:15 | disposition home or self-care (01) ==
PROVIDERS: Emergency Provider Emergency Medicine
DX: N20.1 Calculus of ureter (principal); R10.31 Right lower quadrant pain; R10.9 Unspecified abdominal pain; R11.2 Nausea with vomiting, unspecified; R31.9 Hematuria, unspecified; Z79.899 Other long term (current) drug therapy
CPT/HCPCS: 36415; 74176; 80053; 81001; 85025; 96361; 96374; 96375; 96376; 99284; 99285; J1885; J2270; J2405; J2765

== ENCOUNTER → 2024-12-19 17:31 | Outpatient (BNV) | payer MEDICAID, SELFPAY | PROVIDERS: Visit Provider Specialist | DX: N20.1 Calculus of ureter (principal) | CPT/HCPCS: 74176 ==

== ENCOUNTER 2025-07-07 19:27 | Emergency (ER) | payer OTHER, SELFPAY ==
--- NOTE | 2025-07-07 | ECG_ITS ---
Test Reason : CP Blood Pressure : */* mmHG Vent. Rate : 86 BPM Atrial Rate : 86 BPM P-R Int : 160 ms QRS Dur : 84 ms QT Int : 336 ms P-R-T Axes : 61 46 47 degrees QTcB Int : 402 ms Normal sinus rhythm Normal ECG No previous ECGs available Referred By: Generic ED Physician Electronically Signed By: Addison Mayorga
--- NOTE | ~2025-07-07 | XR_ITS ---
CLINICAL HISTORY: chest pain 1 view chest x-ray Comparison: CR/SR - XR CHEST 2 VIEWS - 07/14/22 10:37 EDT Findings: No consolidation or effusion. Normal size heart. No acute fracture. IMPRESSION: 1. No acute findings. This document has been electronically signed by: Robert Vera MD on 07/07/2025 20:55:22
[2025-07-07 19:43] LABS: MANUAL DIFF FLAG NO
[2025-07-07 19:44] LABS: Hematocrit 52.8 % (42.0-52.0); Hemoglobin 18.0 g/dl (14.0-18.0); Imm Gran Abs Auto 0.04 X10*3/uL (0.00-0.03); Imm Gran Pct Auto 0.4 % (0.0-0.4); Lymphocytes Absolute Auto 4.0 X10*3/uL (1.2-4.9); Mean Corpuscular HGB Conc 34.1 g/dl (31.0-36.0); Mean Corpuscular Hemoglobin 28.2 pg (27.0-33.0); Mean Corpuscular Volume 82.8 fL (80.0-98.0); NRBC Abs Auto 0.000 X10*3/uL (0.0-0.012); NRBC Pct Auto 0.0 /100WBC (0.0-0.2); Platelet Count 318 X10*3/uL (160-400); Red Blood Count 6.38 X10*6/uL (4.60-5.80); White Blood Count 9.1 X10*3/uL (4.8-10.8)
[2025-07-07 19:57] VITALS: BP 138/98; PULSE 95; RESP 20; TEMP 36.6; O2SAT 96; BMI 28.1
[2025-07-07 20:00] LABS: Alanine Aminotransferase 33 U/L (0-40); Albumin Level 4.9 g/dL (3.5-5.0); Alkaline Phosphatase 68 U/L (39-117); Anion Gap 14 (12-20); Aspartate Amino Transferase 23 U/L (5-37); Blood Urea Nitrogen 21 mg/dL (9-16); Calcium 10.2 mg/dL (8.4-10.2); Carbon Dioxide 25 mmol/L (22-29); Chloride 108 mmol/L (96-108); Estimated Glomerular Filt Rate > 60; Potassium 4.7 mmol/L (3.3-5.1); Sodium 142 mmol/L (135-145); Total Protein 7.9 g/dL (6.5-8.0)
[2025-07-07 20:07] LABS: Troponin-I High Sensitivity < 2.7 ng/L (<3.5-35.0)
[2025-07-07 21:16] VITALS: BP 133/91; PULSE 83; RESP 25; TEMP 36.6; O2SAT 98
--- OUTSIDE RECORDS SUMMARY | 2025-07-07 21:25 | XMS_ITS | Encounter Summary ---
Author Organization [employer] Address [address] [place] [address] Care Team Providers Care Blankmaker Name Role Phone Unavailable Primary Care Provider Unavailabl e Encounter Details Date Type Department Care Team (Latest Contact Info) Description 03/31/2019 Abstract [facility] CONVERSION[facility] Dental, Provider, DDS Social History Tobacco [...]
--- OUTSIDE RECORDS SUMMARY | 2025-07-07 21:25 | XMS_ITS | Clinical Summary ---
Author Organization [employer] Address [address] [place] [address] Care Team Providers Care Legal Billing Coordinator Name Role Phone Unavailable Primary Care Provider [...] Date Last Done Comments Depression Screening 1994 Disability Screening 1994 Alcohol/Substance Use Screening 2006 Tobacco Screening 2006 Family Planning (PISQ) 2009 HPV Vaccines (1 - Male 3-dos e series) 2009 DTaP/Tdap/Td Vaccines (1 - Tdap) 2013 Hepatitis B Vaccines (1 of 3 - 19+ 3-dose series) 2013 COVID-19 Vaccine (1 - 2023-2 5 season) 2025 Influenza Vaccine (#1) 2025 Zoster Vaccines (1 of 2) 2044 RSV [...] patient's age to complete this topic Meningococcal B Vaccine Aged Out No l onger eligible based on patient's age to complete this topic Meningococcal Vaccine Aged Out No paris margaret eligible based on patient's age to complete this topic Pneumococcal Vaccine: Pediat rics (0 to 5 Years) and At-Risk Patients (6 to 49) Years Aged Out No longer eligible b ased on patient's age to complete this topic RSV under 20 months Aged Out No longe r eligible based on patient's age to complete this topic Rotavirus Vaccines Aged Out No longer eligible based on patient's age to complete this topic
[2025-07-07 21:51] VITALS: BP 132/89; PULSE 78; RESP 11; TEMP 36.6; O2SAT 98
--- NOTE | 2025-07-07 21:53 | ED_ITS ---
HPI - Chest Pain General Chief Complaint: Chest Pain Stated Complaint: burning pain in chest,L side and arm Time Seen by Provider: 07/07/25 21:24 Source: patient Mode of arrival: ambulatory Limitations: no limitations History of Present Illness ED Provider: Dr. Anna Dailey HPI narrative: Patient comes to the emergency room complaining of left-sided chest pain radiating towards the back for 7 days. Patient states that it is a sharp burning sensation worse with movement. Patient denies any heavy lifting, no new exercises, no obvious trauma. Patient states that taking big breaths makes the chest hurt a little bit bit more. Otherwise, has not shortness of breath. Related Data Home Medications ?Medication ?Instructions ?Recorded ?Confirmed multivitamin 1 tab PO DAILY 11/23/2202/10 phenazopyridine 95 mg tablet (Azo 190 mg PO TID PRN Pa in 11/23/22 11/23/22 Urinary Pain Relief) Previous Rx's ?Medication ?Instructions ?Recorded acetaminophen 500 mg tablet 1,000 mg (2 x 500 mg) PO Q ID PRN 07/14/22 (Tylenol Extra Strength) fever or pain #14 tabs ibuprofen 600 mg tablet 600 mg PO Q8H PRN pain #20 t abs 11/26/22 levofloxacin 500 mg tablet 500 mg PO DAILY 3 days #3 t abs 11/26/22 phenazopyridine 200 mg tablet 200 mg PO TID for urinar y burning 11/26/22 (Pyridium) #18 tabs ketorolac 10 mg tablet 10 mg PO Q6H PRN pain #20 ta bs 12/20/24 metoclopramide HCl 10 mg tablet 10 mg PO Q6H PRN nause a and 12/20/24 vomiting #12 tabs oxycodone 5 mg tablet 5 mg PO Q8H PRN pain #10 tab s 12/20/24 tamsulosin 0.4 mg capsule (Flomax) 0.4 mg PO DAILY #7 caps 12/20/24 cyclobenzaprine 5 mg tablet 5 mg PO BID muscle spasm # 10 tabs 07/07/25 ibuprofen 600 mg tablet 600 mg PO Q8H PRN fever or p ain 07/07/25 #30 tabs Allergies Allergy/AdvReac Type Severity Reaction Status Date / Time No Known Allergies (No Known Allergy Verified 07/07/25 20:00 Allergies*) Review of Systems 2 Review of Systems: Constitutional : No Weight loss, No Fever, No Chills, No Night Sweats, No Fatigue, No Malaise ENT/Mouth : No Hearing loss, No Ear Pain, No Nasal Congestion, No Sinus Pain, No Hoarseness, No sore throat, No Rhinorrhea, No Swallowing Difficulty Eyes: No Eye Pain, No Swelling, No Redness, No Foreign Body, No Discharge, No Vision Changes Cardiovascular : Complaining of sharp/burning sensation on the left side of the chest for about 7 days now radiating towards the back, worse with movement, No SOB, No Dyspnea on Exertion, No Orthopnea, No Edema, No Palpitations Respiratory : No Cough, No Sputum, No Wheezing, No Smoke Exposure, No Dyspnea Gastrointestinal : No Nausea, No Vomiting, No Diarrhea, No Constipation, No abdominal Pain, No Hematochezia, No Melena Genitourinary : no irregular bleeding, No Dysuria, No Urinary Frequency, No Hematuria, No Urinary Incontinence, No Urgency, No Flank Pain, No Urinary Flow Changes, No Hesitancy Musculoskeletal : No joint pain, No Myalgias, No Joint Swelling Skin : No Skin Lesions, No rash Neuro : No Weakness, No Numbness, No Paresthesias, No Loss of Consciousness, No Dizziness, No Headache Psych : No Anxiety/Panic, No Depression, No SI/HI/AH/VH, No Social Issues, Heme/Lymph: No Bruising, No Bleeding,No Lymphadenopathy Endocrine : No Polyuria, No Polydipsia, No Temperature Intolerance [facility] Past Medical History Medical History (Updated 07/07/25 @ 22:56 by Anna Dailey MD) Kidney stones Social History Social History Household Members: Family Housing: House Do you presently have visiting nurse or other home services: No Alcohol intake: current Alcohol intake frequency: holidays/special occasions only Patient Tobacco Use Status: Never used Tobacco Advance Directives: No Advance Directives Information Provided: Yes service: No Current occupational status: employed Physical Exam 2 Exam: Exam: Appearance: Alert. Oriented X3. No acute distress. Eyes: Pupils equal, round and reactive to light. ENT: Pharynx normal. Neck: Normal inspection. Neck supple. No lymph nodes noted. No crepitus CVS: Normal heart rate and rhythm. Pulses normal. Normal S1 and S2, reproducible pain to palpation on the left side of the upper back and left side of the chest. Bedside ultrasound/echo shows good contractility, no pericardial effusion Respiratory: No respiratory distress. Breath sounds normal. No Wheezing. No rales Abdomen: Soft and nontender. No rigidity. No distention. Skin: Skin warm and dry. Normal skin color. Normal skin turgor. Extremities: No lower extremity edema. No Lacerations. No Rash Neuro: Oriented X 3. No motor deficit. No sensory deficit. Moving all extremities. No slurred speech. CN 2 through 12 grossly intact Psych: calm, cooperative, anxious, tearful Vital Signs: Vital Signs: Last Vital Signs Temp 97.9 F 07/07/25 21:51 Pulse 78 07/07/25 21:51 Resp 11 L 07/07/25 21:51 BP 132/89 07/07/25 21:51 Pulse Ox 98 07/07/25 21:51 O2 Del Method Room Air 07/07/25 21:51 BMI result Body Mass Index 28.1 Course Course Course Narrative: Patient very anxious, tearful, complaining of pain. Patient receiving IM ketorolac and p.o. diazepam Patient has a history of kidney stones. Patient denies abdominal or flank pain, denies hematuria or dysuria. Medical Decision Making Medical Decision Making [facility] Narrative: My interpretation of EKG: Normal sinus rhythm, heart rate 86, no ST segment depression or elevation, no T-wave inversion, QTC 402 My interpretation of labs: No significant abnormality in patient's hematology and chemistry, LFTs within normal limits, troponin less than 2.7, ESR, CRP within normal limits, D-dimer negative chest x-ray negative, EKG within normal limits Wells criteria score for pulmonary embolism is 0 It was noted that patient was sleeping, comfortably. Once he will go, patient started hyperventilating. Patient likely has a strong component of anxiety. I discussed the labs, bedside ultrasound, EKG, x-rays and physical exam with the patient, patient's source of pain is likely musculoskeletal Differential Diagnosis Differential Diagnoses: The differential diagnosis associated with the presentation includes (Musculoskeletal pain, costochondritis, pleurisy, ACS, pericarditis) Admission/Observation Consideration of admission/observation: Escalation of care including admission/observation considered (Given patient's symptoms and presentation, observation was considered) Lab Data MDM Lab Attestation statement: I reviewed the patient's lab results. 07/07/25 19:38 07/07/25 19:38 Labs: Lab Results 07/07/25 07/07/25 Range/Units 19:38 21:55 WBC 9.1 (4.8-10.8) X10*3/uL RBC 6.38 H (4.60-5.80) X10*6/uL Hgb 18.0 (14.0-18.0) g/dl Hct 52.8 H (42.0-52.0) % MCV 82.8 (80.0-98.0) fL MCH 28.2 (27.0-33.0) pg MCHC 34.1 (31.0-36.0) g/dl RDW 13.2 (11.0-16.0) % Plt Count 318 D (160-400) X10*3/uL MPV 10.5 (9.4-12.4) fL Immature Gran % (Auto) 0.4 (0.0-0.4) % Neut % (Auto) 44.8 L (45-73) % Lymph % (Auto) 43.9 H (20-40) % [place] % (Auto) 6.2 (2-11) % Eos % (Auto) 4.3 H (0-4) % Baso % (Auto) 0.4 (0-2) % Lymph # (Auto) 4.0 (1.2-4.9) X10*3/uL [place] # (Auto) 0.6 (0.1-1.2) X10*3/uL Eos # (Auto) 0.4 (0.0-0.4) X10*3/uL Baso # (Auto) 0.0 (0.0-0.2) X10*3/uL Abs Immat Gran (auto) 0.04 H (0.00-0.03) X10*3/uL Absolute Neuts (auto) 4.1 (2.0-8.3) x10*3/uL Absolute Nucleated RBC 0.000 (0.0-0.012) X10*3/uL Nucleated RBC % (auto) 0.0 (0.0-0.2) /100WBC ESR 1 (0-15) MM/HR D-Dimer High Sensitivty < 150 NG/ML Sodium 142 (135-145) mmol/L Potassium 4.7 (3.3-5.1) mmol/L Chloride 108 (96-108) mmol/L Carbon Dioxide 25 (22-29) mmol/L Anion Gap 14 (12-20) BUN 21 H (9-16) mg/dL Creatinine 1.04 (0.5-1.4) mg/dL Estim Creat Clear Calc TNP Estimated GFR > 60 Random Glucose 95 (60-115) mg/dL Calcium 10.2 D (8.4-10.2) mg/dL Total Bilirubin 0.5 (0.0-1.0) mg/dL AST 23 (5-37) U/L ALT 33 (0-40) U/L Alkaline Phosphatase 68 (39-117) U/L Troponin I High Sens < 2.7 (<3.5-35.0) ng/L C-Reactive Protein < 0.10 (< or = 0.50) mg/dL Total Protein 7.9 (6.5-8.0) g/dL Albumin 4.9 (3.5-5.0) g/dL Independent Interpretation I performed an independent interpretation of an: EKG and Plain X-Ray Radiology Impression Discussion of test interpretation with radiology: I have reviewed the radiologist's reading. Radiologist Impression: No consolidation or effusion. Normal size heart. No acute fracture. Critical Care Time Critical Care Time Critical Care Time: Yes Total Critical Care Time: 35 Attestation: I have personally provided critical care time. Time includes review of lab data, radiology results, discussion with consultants, and monitoring for potential decompensation. Intervention performed as documented. Discharge Plan Discharge Clinical Impression: Atypical chest pain Patient Disposition: Home, Self-Care Instructions: Chest Pain (ED), Chest Wall Pain (ED) Additional Instructions: Please follow-up with your primary care physician tomorrow. If you have any worsening or new symptoms, please return to the emergency room or call 911 Prescriptions: New ibuprofen 600 mg tablet 600 mg PO Q8H PRN (Reason: fever or pain) Qty: 30 0RF cyclobenzaprine 5 mg tablet 5 mg PO BID Qty: 10 0RF Rx Instructions: Do not drive or go to work after taking this medication. No Action phenazopyridine [Azo Urinary Pain Relief] 95 mg Tablet 190 mg PO TID PRN (Reason: Pain) multivitamin Tablet 1 tab PO DAILY phenazopyridine [Pyridium] 200 mg tablet 200 mg PO TID Qty: 18 0RF Rx Instructions: take med with food as can cause nausea levofloxacin 500 mg tablet 500 mg PO DAILY 3 Days Qty: 3 0RF ibuprofen 600 mg tablet 600 mg PO Q8H PRN (Reason: pain) Qty: 20 0RF acetaminophen [Tylenol Extra Strength] 500 mg tablet 1,000 mg PO QID PRN (Reason: fever or pain) Qty: 14 0RF oxycodone 5 mg tablet 5 mg PO Q8H PRN (Reason: pain) Qty: 10 0RF Rx Instructions: Partial Fill upon patient request. ketorolac 10 mg tablet 10 mg PO Q6H PRN (Reason: pain) Qty: 20 0RF Rx Instructions: maximum total duration of 5 days from all oral, intranasal, or parenteral formulations. The patient received an IV dose of Toradol here in the emergency department metoclopramide HCl 10 mg tablet 10 mg PO Q6H PRN (Reason: nausea and vomiting) Qty: 12 0RF tamsulosin [Flomax] 0.4 mg capsule 0.4 mg PO DAILY Qty: 7 0RF Print Language: Occitan
[2025-07-07 22:17] LABS: D Dimer High Sensitivity < 150 NG/ML
--- NOTE | 2025-07-07 23:14 | PC.NURSE ---
reviewed discharge instructions with pt. pt verbalized understanding, no sign of distress, pt had a steady gait, notified primary nurse Kerri.
[2025-07-07 23:17] VITALS: BP 132/89; PULSE 78; RESP 20; TEMP 36.7; O2SAT 99
== END 2025-07-07 23:37 | disposition home or self-care (01) ==
PROVIDERS: Emergency Provider Emergency Medicine
DX: R07.89 Other chest pain (principal); M79.602 Pain in left arm; Z79.899 Other long term (current) drug therapy
CPT/HCPCS: 36415; 71045; 80053; 84484; 85025; 85379; 85652; 86140; 93005; 96372; 99284; 99285; J1885

== ENCOUNTER → 2025-07-07 19:32 | Outpatient (BNV) | payer SELFPAY | PROVIDERS: Emergency Provider Emergency Medicine; Visit Provider Internal Medicine Cardiovascular Disease | DX: R07.9 Chest pain, unspecified (principal) | CPT/HCPCS: 93010 ==

== ENCOUNTER → 2025-07-07 20:07 | Outpatient (BNV) | payer SELFPAY | PROVIDERS: Visit Provider Radiology Diagnostic Radiology | DX: R07.9 Chest pain, unspecified (principal) | CPT/HCPCS: 71045 ==